=== PATIENT | female | born 1940 | race Caucasian/White ===

== ENCOUNTER 2020-02-15 11:13 | Emergency (ER) | payer MEDICARE, MEDICAID, SELFPAY ==
--- NOTE | 2020-02-15 11:15 | DI.CT_ITS ---
EXAM: CT HEAD CERV SPINE FACIAL WO CLINICAL HISTORY: s/p fall, R forehead abrasion TECHNIQUE: COMPARISON: No exams were available for comparison FINDINGS: CT examination head was performed without contrast administration. Note is made right pre frontal so ft tissue hematoma. No calvarial fracture. Moderate cerebral atrophy without evidence of acute intr acranial hemorrhage, mass effect or midline shift. The orbital and temporal bone structures appear i ntact. Paranasal sinuses and mastoid air cells well aerated. Additional scanning of facial region shows no facial fracture. No orbital fracture. Orbital content s appear intact. No mandibular fracture. Scanning of the cervical spine shows severe hypertrophic degenerative changes with very prominent ost eophytes involving vertebral endplates anteriorly at the midcervical level. No evidence of acute fra cture or dislocation. Tracheolaryngeal structures appear intact. IMPRESSION: No evidence of acute injury of the head, facial region, or cervical spine. RADIATION DOSE DELIVERED: 1,516.84mGy.cm Total DLP
[2020-02-15 11:18] VITALS: BP 111/39; PULSE 85; TEMP 35.9; O2SAT 98
--- NOTE | 2020-02-15 11:19 | ED.GENADUL_ITS ---
Discharge Plan Disposition Patient Disposition: HOME Condition: Stable Discharge Details Chief Complaint: Trauma Clinical Impression: Fracture, ribs, Forehead abrasion, Head injury, acute, without loss of consciousness Primary Care Provider: Joanna Liz ED Provider: Latonya Nicole Home Meds and New Rx's Prescriptions: Continued trazodone 50 mg Tablet 50 mg PO BID RF: 0 trazodone 50 mg Tablet 50 mg PO QHS PRNRF: 0 lovastatin 40 mg Tablet 40 mg PO DAILY RF: 0 melatonin 3 mg Tablet 3 mg PO DAILY RF: 0 levothyroxine 50 mcg Tablet 50 mcg PO DAILY RF: 0 ferrous sulfate 325 mg (65 mg iron) Tablet 325 mg PO DAILY RF: 0 Ensure Liquid 1 RF: 0 Magnesium (oxide/AA chelate) 300 mg Capsule 300 cap PO DAILY RF: 0 rivastigmine 4.6 mg/24 hr Patch 24 Hour 4.6 mg TRANSDERMAL DAILY RF: 0 omeprazole 20 mg Tablet,Delayed Release (Dr/Ec) 20 mg PO DAILY RF: 0 calcium carb and citrat-mag ox 200 mg calcium- 50 mg Tablet 1 tab PO BID RF: 0 Discharge Instructions Instructions: Rib Fracture (ED), Head Injury (ED), Abrasion (ED) Additional Instructions: Alternate tylenol and motrin as needed and directed for pain. Apply topical antibiotic ointment to the forehead abrasion 1-2 times daily over the next few days. Use the incentive spirometer as directed to prevent the development of pneumonia. Follow-up with your primary care doctor in 1 week. Return to the emergency department with any worsening or new concerning symptoms. Discharge Data Discharge Physician: Latonya Nicole Medical Decision Making 79-year-old female with a history of developmental delay presents from care home for mechanical fall off of couch and head injury. No report of LOC or vomiting. No report of any other injury. She ambulates with a walker at baseline. Vitals within normal limits. Call Out Clerk at bedside who states that patient is at her neurologic baseline. Patient has an abrasion to her right forehead but no other evidence of injury. Lungs clear. Abdomen soft nontender. No focal deficits. No orthopedic deformity. Will refer for CT head/facial bone/cervical spine in addition to chest x-ray and pelvis x-ray as she is unable to provide history. CT imaging reviewed and negative. Pelvis x-ray negative. Chest x-ray notes minimally displaced left third and fourth rib fractures. Patient reassessed and no acute change. Will send with incentive spirometer and advised pain control. Advised to follow up with the primary care doctor for re-evaluation. Usual and c ustomary return precautions given prior to discharge. Medical Records Medical records reviewed: Yes I reviewed the patient's medical records. Imaging Data Radiologic Study: Radiologist's impression: CT Head Without Contrast Exam date and time: 02/15/2020 11:22 AM Age: 79 years old Clinical indication: Other: S/P fall. RT forehead abrasion TECHNIQUE: Imaging protocol: Computed tomography of the head without contrast. COMPARISON: No relevant prior studies available. FINDINGS: Brain: Central and cortical brain atrophy evident, appropriate for patient age. There is nonspecific periventricular low attenuation, likely microangiopathic disease. No acute intracranial hemorrhage. Ventricles: Normal. No ventriculomegaly. Bones/joints: See Soft tissues finding. Sinuses: Visualized sinuses are unremarkable. No fluid levels. Mastoid air cells: Visualized mastoid air cells are well aerated. Soft tissues: Soft tissue swelling over the right frontal bone. No depressed calvarial fracture. IMPRESSION: 1. No acute intracranial abnormality. 2. Soft tissue swelling over the right frontal bone. No depressed calvarial fracture. CT Maxillofacial Without Contrast Exam date and time: 02/15/2020 11:22 AM Age: 79 years old Clinical indication: Other: S/P fall. RT forehead abrasion TECHNIQUE: Imaging protocol: Computed tomography images of the face without contrast. COMPARISON: No relevant prior studies available. FINDINGS: Orbits: Orbits are normal. Globes are unremarkable. Bones/joints: No acute fracture. Sinuses: Normal. No air-fluid levels. Soft tissues: Unremarkable. IMPRESSION: No acute findings. CT Cervical Spine Without Contrast Exam date and time: 02/15/2020 11:22 AM Age: 79 years old Clinical indication: Other: S/P fall. RT forehead abrasion TECHNIQUE: Imaging protocol: Computed tomography images of the cervical spine without contrast. COMPARISON: No relevant prior studies available. FINDINGS: Vertebrae: No acute fracture. Prominent anterior osteophytes, to the right of midline. Discs/Spinal canal/Neural foramina: Mild disc space narrowing at C5-C6. Multilevel facet arthropathy. Soft tissues: Unremarkable. Lungs: Lung apices are normal. IMPRESSION: No acute fracture. XR Pelvis Exam date and time: 02/15/2020 12:07 PM Age: 79 years old Clinical indication: Other: S/P fall off couch, R/O acute FX; Patient HX: Recent hip replacement TECHNIQUE: Imaging protocol: XR pelvis. Views: 1 or 2 view. COMPARISON: No relevant prior studies available. FINDINGS: Bones/joints: Left femoral prosthesis There is no evidence of acute fracture.There is no evidence of malalignment or dislocation. Degenerative changes in the lumbar spine Soft tissues: Unremarkable. IMPRESSION: There is no evidence of acute fracture.There is no evidence of malalignment or dislocation. XR Chest, 2 Views Exam date and time: 02/15/2020 12:04 PM Age: 79 years old Clinical indication: Other: Fall off couch, R/O acute injury TECHNIQUE: Imaging protocol: XR of the chest Views: 2 views. COMPARISON: No relevant prior studies available. FINDINGS: Lungs: Unremarkable. No consolidation. Pleural space: Unremarkable. No pleural effusion. No pneumothorax. Heart/Mediastinum: Unremarkable. No cardiomegaly. Bones/joints: Minimally displaced fractures of the left 3rd and 4th ribs. Degenerative changes in the glenohumeral joints IMPRESSION: Minimally displaced fractures of the left 3rd and 4th ribs. HPI General Date/Time Provider Initiated Documentation: 02/15/20 11:19 . Related Data Home Medications Medication Instructions Recorded Confirmed Ensure 1 02/15/20 Magnesium (oxide/AA chelate) 300 cap PO DAILY 02/15/20 02/15/20 calcium carb and citrat-mag ox 1 tab PO BID 02/15/20 02/15/20 ferrous sulfate 325 mg PO DAILY 02/15/20 02/15/20 levothyroxine 50 mcg PO DAILY 02/15/20 02/15/20 lovastatin 40 mg PO DAILY 02/15/20 02/15/20 melatonin 3 mg PO DAILY 02/15/20 02/15/20 omeprazole 20 mg PO DAILY 02/15/20 02/15/20 rivastigmine 4.6 mg TRANSDERMAL DAILY 02/15/20 02/15/20 trazodone 50 mg PO BID 02/15/20 02/15/20 trazodone 50 mg PO QHS PRN 02/15/20 02/15/20 Allergies Allergy/AdvReac Type Severity Reaction Status Date / Time No Known Allergies Allergy Unverified 02/15/20 11:25 [facility] Social History Smoking/Tobacco Use Status: Never Alcohol Intake: never Drug use: Never Substance use type: does not use Additional Social history: Patient has dementia. She lives in an assisted living facility in [place]
--- NOTE | 2020-02-15 12:00 | DI.RAD_ITS ---
EXAM: XR PELVIS AP CLINICAL HISTORY: s/p fall off couch, r/o acute fx TECHNIQUE: COMPARISON: No exams were available for comparison FINDINGS: Single AP view of the pelvis was obtained. Apparent bipolar left hip prosthesis in position which ap pears well seated. No gross fracture seen on this single view, please note that single projection is not adequate to exclude pelvic fracture. IMPRESSION: RADIATION DOSE DELIVERED: Total DLP
--- NOTE | 2020-02-15 12:00 | DI.RAD_ITS ---
EXAM: XR CHEST 2V PA LATERAL CLINICAL HISTORY: fall off couch, r/o acute injury TECHNIQUE: COMPARISON: No exams were available for comparison FINDINGS: There is question of deformity of left 3rd and 4th ribs laterally, acute or chronic injury. Lungs ar e clear, no pleural effusion or pneumothorax. Cardiac size within normal limits. IMPRESSION: Possible left 3rd and 4th rib fractures, of uncertain age. No other significant findings. RADIATION DOSE DELIVERED: Total DLP
--- NOTE | 2020-02-15 12:28 | DI.VRAD_ITS ---
PROCEDURE INFORMATION: Exam: XR Chest, 2 Views Exam date and time: 02/15/2020 12:04 PM Age: 79 years old Clinical indication: Other: Fall off couch, R/O acute injury TECHNIQUE: Imaging protocol: XR of the chest Views: 2 views. COMPARISON: No relevant prior studies available. FINDINGS: Lungs: Unremarkable. No consolidation. Pleural space: Unremarkable. No pleural effusion. No pneumothorax. Heart/Mediastinum: Unremarkable. No cardiomegaly. Bones/joints: Minimally displaced fractures of the left 3rd and 4th ribs. Degenerative changes in the glenohumeral joints IMPRESSION: Minimally displaced fractures of the left 3rd and 4th ribs. Dictated and Authenticated by: Anjana Jacob MD. Ordering:CONCEPCION Hanks MD
--- NOTE | 2020-02-15 12:29 | DI.VRAD_ITS ---
PROCEDURE INFORMATION: Exam: XR Pelvis Exam date and time: 02/15/2020 12:07 PM Age: 79 years old Clinical indication: Other: S/P fall off couch, R/O acute FX; Patient HX: Recent hip replacement TECHNIQUE: Imaging protocol: XR pelvis. Views: 1 or 2 view. COMPARISON: No relevant prior studies available. FINDINGS: Bones/joints: Left femoral prosthesis There is no evidence of acute fracture.There is no evidence of malalignment or dislocation. Degenerative changes in the lumbar spine Soft tissues: Unremarkable. IMPRESSION: There is no evidence of acute fracture.There is no evidence of malalignment or dislocation. Dictated and Authenticated by: Anjana Jacob MD. Ordering:CONCEPCION Hanks MD
--- NOTE | 2020-02-15 12:30 | DI.VRAD_ITS ---
PROCEDURE INFORMATION: Exam: CT Head Without Contrast Exam date and time: 02/15/2020 11:22 AM Age: 79 years old Clinical indication: Other: S/P fall. RT forehead abrasion TECHNIQUE: Imaging protocol: Computed tomography of the head without contrast. COMPARISON: No relevant prior studies available. FINDINGS: Brain: Central and cortical brain atrophy evident, appropriate for patient age. There is nonspecific periventricular low attenuation, likely microangiopathic disease. No acute intracranial hemorrhage. Ventricles: Normal. No ventriculomegaly. Bones/joints: See Soft tissues finding. Sinuses: Visualized sinuses are unremarkable. No fluid levels. Mastoid air cells: Visualized mastoid air cells are well aerated. Soft tissues: Soft tissue swelling over the right frontal bone. No depressed calvarial fracture. IMPRESSION: 1. No acute intracranial abnormality. 2. Soft tissue swelling over the right frontal bone. No depressed calvarial fracture. PROCEDURE INFORMATION: Exam: CT Maxillofacial Without Contrast Exam date and time: 02/15/2020 11:22 AM Age: 79 years old Clinical indication: Other: S/P fall. RT forehead abrasion TECHNIQUE: Imaging protocol: Computed tomography images of the face without contrast. COMPARISON: No relevant prior studies available. FINDINGS: Orbits: Orbits are normal. Globes are unremarkable. Bones/joints: No acute fracture. Sinuses: Normal. No air-fluid levels. Soft tissues: Unremarkable. IMPRESSION: No acute findings. PROCEDURE INFORMATION: Exam: CT Cervical Spine Without Contrast Exam date and time: 02/15/2020 11:22 AM Age: 79 years old Clinical indication: Other: S/P fall. RT forehead abrasion TECHNIQUE: Imaging protocol: Computed tomography images of the cervical spine without contrast. COMPARISON: No relevant prior studies available. FINDINGS: Vertebrae: No acute fracture. Prominent anterior osteophytes, to the right of midline. Discs/Spinal canal/Neural foramina: Mild disc space narrowing at C5-C6. Multilevel facet arthropathy. Soft tissues: Unremarkable. Lungs: Lung apices are normal. IMPRESSION: No acute fracture. Dictated and Authenticated by: Kelsey Martinez MD. Ordering:CONCEPCION Hanks MD
--- NOTE | 2020-02-15 14:53 | NUR.NOTE ---
Nursing Note: Called Hafsa Clark, [place] State Public Guardian and notified her that the patient has rib fractures, whether or not they were new or old. Vandana Clark [phone]
== END 2020-02-15 13:15 | disposition home or self-care (01) ==
PROVIDERS: Emergency Provider Physician Assistant; PCP Family Medicine
DX: S09.90XA Unspecified injury of head, initial encounter (principal); S00.81XA Abrasion of other part of head, initial encounter; S22.42XA Multiple fractures of ribs, left side, initial encounter for closed fracture; W08.XXXA Fall from other furniture, initial encounter
CPT/HCPCS: 99284; 70450; 70486; 71046; 72125; 72170; 99281

== ENCOUNTER 2020-04-20 08:40 | Outpatient (REF) | payer MEDICARE, MEDICAID, SELFPAY ==
[2020-04-20 21:06] LABS: HGB 11.8 g/dL (11.2-15.7); MCH 29.9 pg (27.0-33.0); MCHC 32.8 % (32.0-36.0); MCV 91.1 fL (80-95); MPV 10.9 fL (8.0-11.0); Platelet Count 295 10^3/uL (130-400); RBC 3.95 10^6/uL (3.93-5.22); RDW 13.5 % (11.7-14.6); RDW-SD 45.3 fL; WBC 5.41 10^3/uL (4.4-10.8)
[2020-04-20 21:24] LABS: ALT 22 U/L (14-59); AST 19 U/L (15-37); Albumin 3.5 g/dL (3.4-5.0); Alkaline Phosphatase 61 U/L (46-116); Anion Gap 5.9 mmol/L (3-11); BUN 19 mg/dL (7-18); CO2 30.1 mmol/L (21.0-32.0); CREATININE 1.05 mg/dL (0.55-1.02); Calcium 9.3 mg/dL (8.5-10.1); Calculated LDL 76 mg/dL (<100); Chloride 100 mmol/L (98-107); Cholesterol 164 mg/dL (<200); Estimated GFR 50.82 (mL/min/1.73m2); Glucose 88 mg/dL (74-106); HDL Cholesterol 56 mg/dL (40-60); Potassium 4.4 mmol/L (3.5-5.1); Sodium 136 mmol/L (136-145); Triglyceride 160 mg/dL (<150)
[2020-04-20 22:00] LABS: Bilirubin, Total 0.4 mg/dL (0.2-1.0)
== END 2020-04-20 09:00 ==
LOC: NCHCN 08:40
PROVIDERS: PCP Family Medicine; Visit Provider Physician Assistant
DX: E03.9 Hypothyroidism, unspecified (principal); F39 Unspecified mood [affective] disorder; D64.9 Anemia, unspecified; E78.5 Hyperlipidemia, unspecified
CPT/HCPCS: 80053; 80061; 85027; 84443

== ENCOUNTER 2020-06-22 17:02 | Outpatient (REF) | payer MEDICARE, SELFPAY ==
[2020-06-22 20:45] LABS: Abs Immature Grans 0.01 10^3/uL (0.0-0.06); Absolute Basophil Count 0.06 10^3/uL (0.0-0.2); Absolute Eosinophil Count 0.12 10^3/uL (0.0-0.7); Absolute Lymphocyte Count 2.18 10^3/uL (1.2-3.4); Absolute Monocyte Count 0.59 10^3/uL (0.1-0.8); Absolute Neutrophil Count 3.55 10^3/uL (1.2-6.7); Basophils % 0.9; Eosinophils % 1.8; HCT 35.7 % (36.0-46.0); Immature Grans % 0.2; Lymphocytes % 33.5; MCHC 33.6 % (32.0-36.0); MCV 92.2 fL (80-95); MPV 10.6 fL (8.0-11.0); Monocytes % 9.1; Neutrophils % 54.5; Nucleated RBC 0 %; Platelet Count 283 10^3/uL (130-400); RBC 3.87 10^6/uL (3.93-5.22); RDW 13.1 % (11.7-14.6); RDW-SD 44.1 fL; WBC 6.51 10^3/uL (4.4-10.8)
[2020-06-22 20:59] LABS: ALT 27 U/L (14-59); AST 22 U/L (15-37); Albumin 3.4 g/dL (3.4-5.0); Alkaline Phosphatase 67 U/L (46-116); Anion Gap 6.8 mmol/L (3-11); BUN 25 mg/dL (7-18); Bilirubin, Total 0.2 mg/dL (0.2-1.0); CO2 26.2 mmol/L (21.0-32.0); CREATININE 1.13 mg/dL (0.55-1.02); Calcium 8.7 mg/dL (8.5-10.1); Chloride 100 mmol/L (98-107); Estimated GFR 46.69 (mL/min/1.73m2); Glucose 88 mg/dL (74-106); Potassium 5.1 mmol/L (3.5-5.1); Sodium 133 mmol/L (136-145); TSH (W/Ref FT4) 0.93 uIU/mL (0.36-3.74); Total Protein 6.7 g/dL (6.4-8.2)
== END 2020-06-22 17:22 ==
LOC: NCHCN 17:02
PROVIDERS: PCP Family Medicine
DX: R55 Syncope and collapse (principal)
CPT/HCPCS: 80053; 84443; 85025

== ENCOUNTER 2020-07-31 15:30 | Outpatient (REF) | payer MEDICARE, SELFPAY ==
[2020-07-31 17:02] LABS: C Diff PCR Negative (Negative)
[2020-08-03 14:45] LABS: Campylobacter PCR Negative (Negative); Salmonella PCR Negative (Negative); Shiga Toxin PCR Negative (Negative); Shigella/Enteroinvasive Ecoli Negative (Negative)
== END 2020-07-31 15:31 | disposition home or self-care (01) ==
LOC: NCHCN 15:30
PROVIDERS: PCP Family Medicine; Visit Provider Family Medicine
DX: R19.7 Diarrhea, unspecified (principal)
CPT/HCPCS: 87493; 87505; 83630; 87177

== ENCOUNTER 2020-08-20 16:01 | Outpatient (REF) | payer MEDICARE, MEDICAID, SELFPAY ==
[2020-08-20 20:12] LABS: HCT 32.6 % (36.0-46.0); HGB 10.8 g/dL (11.2-15.7); MCH 29.8 pg (27.0-33.0); MCHC 33.1 % (32.0-36.0); MCV 90.1 fL (80-95); MPV 10.2 fL (8.0-11.0); Platelet Count 241 10^3/uL (130-400); RBC 3.62 10^6/uL (3.93-5.22); RDW 12.5 % (11.7-14.6); RDW-SD 41.3 fL; WBC 6.69 10^3/uL (4.4-10.8)
[2020-08-20 20:35] LABS: ALT 22 U/L (14-59); AST 22 U/L (15-37); Alkaline Phosphatase 61 U/L (46-116); BUN 9 mg/dL (7-18); Bilirubin, Total 0.2 mg/dL (0.2-1.0); CREATININE 0.9 mg/dL (0.55-1.02); Calcium 8.2 mg/dL (8.5-10.1); Chloride 98 mmol/L (98-107); Glucose 107 mg/dL (74-106); Potassium 3.7 mmol/L (3.5-5.1); Sodium 131 mmol/L (136-145)
== END 2020-08-20 16:02 | disposition home or self-care (01) ==
LOC: NCHCN 16:01
PROVIDERS: PCP Family Medicine; Visit Provider Family Medicine
DX: R19.7 Diarrhea, unspecified (principal)
CPT/HCPCS: 80053; 85027

== ENCOUNTER 2020-08-26 15:53 | Outpatient (REF) | payer MEDICARE, MEDICAID, SELFPAY ==
[2020-08-26 14:57] LABS: C Diff PCR Negative (Negative)
== END 2020-08-26 15:54 | disposition home or self-care (01) ==
LOC: NCHCN 15:53
PROVIDERS: PCP Family Medicine; Visit Provider Internal Medicine
DX: R19.7 Diarrhea, unspecified (principal)
CPT/HCPCS: 87329; 87493; 82272; 83630

== ENCOUNTER 2020-08-26 19:00 | Emergency (ER) | payer MEDICARE, MEDICAID, SELFPAY ==
[2020-08-26 18:55] VITALS: PULSE 81; RESP 18; TEMP 36.6; O2SAT 94
--- NOTE | 2020-08-26 19:16 | ED.GENADUL_ITS ---
Discharge Plan Disposition Patient Disposition: HOME Condition: Stable Discharge Details Clinical Impression: Vomiting and diarrhea, Hypomagnesemia, Hypokalemia Primary Care Provider: Joanna Liz ED Provider: Dyan Oneil Home Meds and New Rx's Prescriptions: New ondansetron 4 mg tablet,disintegrating 4 mg PO Q6H PRN (Reason: nausea and vomiting) Qty: 10 RF: 0 Continued loperamide [Imodium A-D] 2 mg capsule 2 mg PO BID PRNRF: 0 sertraline 50 mg tablet 50 mg PO DAILY RF: 0 ibuprofen 400 mg tablet 400 mg PO Q6H PRNRF: 0 ondansetron HCl 4 mg tablet 4 mg PO Q6H PRNRF: 0 hydrocortisone [Ala-Luis] 1 % cream 1 applic topical BID PRNRF: 0 magnesium oxide 400 mg (241.3 mg magnesium) tablet 400 mg PO DAILY RF: 0 rivastigmine [Exelon Patch] 4.6 mg/24 hr patch 24 hour 1 patch transdermal DAILY RF: 0 acetaminophen [Tylenol] 325 mg tablet 650 mg PO ONCE PRNRF: 0 loratadine 10 mg tablet 10 mg PO DAILY PRNRF: 0 calcium carbonate [Calcium 600] 600 mg calcium (1,500 mg) tablet 600 mg PO BID RF: 0 trazodone 50 mg Tablet 50 mg PO BID RF: 0 lovastatin 40 mg Tablet 40 mg PO DAILY RF: 0 melatonin 3 mg Tablet 3 mg PO DAILY RF: 0 levothyroxine 50 mcg Tablet 50 mcg PO DAILY RF: 0 ferrous sulfate 325 mg (65 mg iron) Tablet 325 mg PO DAILY RF: 0 Ensure Liquid 1 RF: 0 Magnesium (oxide/AA chelate) 300 mg Capsule 300 cap PO DAILY RF: 0 rivastigmine 4.6 mg/24 hr Patch 24 Hour 4.6 mg TRANSDERMAL DAILY RF: 0 omeprazole 20 mg Tablet,Delayed Release (Dr/Ec) 20 mg PO DAILY RF: 0 Discharge Instructions Instructions: Ondansetron (By mouth), Hypokalemia (ED), Acute Diarrhea (ED), Hypomagnesemia (ED) Additional Instructions: Please encourage frequent small sips of fluids. Please try to keep Joanna from drinking too quickly as this may cause increased nausea or vomiting. You have done an excellent job keeping her hydrated, please continue to do so with frequent fluid offerings. Potassium and magnesium are both low today, these will replenish orally. Please encourage foods rich in these substances, attached is the formation on how to increase dietary intake of potassium and magnesium. Please follow-up with primary care in the next week for reevaluation. If she develops fever/chills, inability stay hydrated, abdominal pain or other new/worsening symptoms please seek care urgently once again. You may use the Zofran as prescribed to help with any recurrence of her nausea or vomiting. Referrals: Joanna Liz [Primary Care Provider] - Discharge Data Discharge Date/Time-TO BE ENTERED AT DEPARTURE: 08/26/20 22:45 Medical Decision Making Patient is a pleasant 79-year-old female with past medical history pertinent for anemia, anxiety, cognitive developmental delay, GERD, diverticulosis, hyperlipidemia, hypothyroidism, impulse control disorder, incontinence, loose stools, mood disorder, vascular dementia. She is brought in by home care provider with concern for 6 weeks of diarrhea. Culture provided reports 6-10 bowel movements that are largely liquidy per day. No bright red blood or melena noted. Patient is not endorsing any discomfort. They state that she began having some nausea and vomiting yesterday. 2 episodes of vomiting yesterday and 2 today. No diminished appetite. States that she just drinks quite a lot and drinks very quickly. He has been giving her Gatorade to keep her replenished. No fevers or chills. No previous surgical history. Patient has been seen by her primary care doctor. Evaluated the patient yesterday and began her on new antidiarrheal medication. This was to start today but not been given as of yet secondary to the GI upset. On exam, patient appears nontoxic. She is repetitively asking to leave. Her abdominal exam is benign with no pain elicited. No evidence to suggest a surgical abdomen. No CVA tenderness. Mucous membranes appear moist. Given the length of time is been going on, I do feel that laboratory evaluation would be appropriate, in particular to evaluate for potential dehydration or electrolyte imbalance. Patient receiving IV fluids. She was given 4 mg of Zofran. Is now tolerating p .o. fluids. No vomiting here thus far. Labs reviewed. No leukocytosis. Stable H&H. Potassium is low at 3.1 and magnesium of 1.4. Will replenish both of these orally. No other acute abnormalities are noted. Trace protein in her urine. Patient continues to be resting comfortably. She repetitively asking to leave. She is quite pleasant and this does appear to be more her norm to be very repetitive in her questioning. I did speak with the patient legal guardian, Vandana, and slowly had findings of exam and work-up completed here today. I did not see any evidence to suggest a surgical abdomen and patient has reassuring labs, plan to hold off on any imaging. I advised that hopefully been Zofran allow her to be able to take the medication prescribed by her primary care provider. I encourage close follow-up with primary care and continuation of the medications. We did discuss increasing potassium magnesium in her diet. Return precautions were discussed. All of her questions and concerns were addressed and she is agreement this plan. HPI General Mode of arrival: EMS . Date/Time Provider Initiated Documentation: 08/26/20 19:02 . Limitations to Documentation: physical limitation (cognitive delay, vascular dementia) . Information obtained by: patient and family (assisted living home director, Adriana) . History of Present Illness 79 year old F presents to the emergency department with the chief complaint of diarrhea and vomiting, described as moderate (no pain, 6- 10BM/day, 2 episodes of vomiting today), Quality is described as other (Patient is not currently endorsing pain), and is localized to the abdomen. Patient started experiencing this week(s) (6) and it has been constant. No relieving factors improve symptom(s), No exacerbating factors reported . Patient notes no other symptoms.. Patient did receive the following treatments prior to arrival, none Related Data Home Medications Medication Instructions Recorded Confirmed Ensure 1 02/15/20 Magnesium (oxide/AA chelate) 300 cap PO DAILY 02/15/20 08/26/20 ferrous sulfate 325 mg PO DAILY 02/15/20 08/26/20 levothyroxine 50 mcg PO DAILY 02/15/20 08/26/20 lovastatin 40 mg PO DAILY 02/15/20 08/26/20 melatonin 3 mg PO DAILY 02/15/20 08/26/20 omeprazole 20 mg PO DAILY 02/15/20 08/26/20 rivastigmine 4.6 mg TRANSDERMAL DAILY 02/15/20 02/15/20 trazodone 50 mg PO BID 02/15/20 02/15/20 acetaminophen 325 mg tablet 650 mg PO ONCE PRN tab 08/17/20 08/26/20 calcium carbonate 600 mg calcium 600 mg PO BID 08/17/20 08/26/20 (1,500 mg) tablet hydrocortisone 1 % topical cream 1 applic TOPICAL BID PRN 08/17/20 08/26/20 ibuprofen 400 mg tablet 400 mg PO Q6H PRN 08/17/20 08/26/20 loperamide 2 mg capsule 2 mg PO BID PRN cap 08/17/20 08/26/20 loratadine 10 mg tablet 10 mg PO DAILY PRN 08/17/20 08/26/20 magnesium oxide 400 mg (241.3 mg 400 mg PO DAILY 08/17/20 magnesium) tablet ondansetron HCl 4 mg tablet 4 mg PO Q6H PRN 08/17/20 08/26/20 rivastigmine 4.6 mg/24 hour 1 patch TRANSDERMAL DAILY 08/17/20 transdermal patch sertraline 50 mg tablet 50 mg PO DAILY 08/17/20 08/26/20 ondansetron 4 mg PO Q6H PRN #10 tab 08/26/20 Previous Rx's Medication Instructions Recorded ondansetron 4 mg PO Q6H PRN #10 tab 08/26/20 Allergies Allergy/AdvReac Type Severity Reaction Status Date / Time No Known Allergies Allergy Unverified 08/26/20 19:02 General Stated Complaint: Nausea/Vomit/Diar TAD: 3 Review of Systems Unobtainable due to mental status [facility] Medical History Acute alteration in mental status Anemia Anxiety Cataracts, bilateral Cognitive developmental delay Diverticulosis of colon GERD (gastroesophageal reflux disease) Hyperlipidemia Hypothyroidism Impulse control disorder Incontinence Loose stools Mood disorder Osteopenia Syncope Vascular dementia Well adult exam Surgical History History of left hip replacement Social History Smoking/Tobacco Use Status: Never Smoking risk assessment performed?: Yes Alcohol Intake: never Drug use: Never Substance use type: does not use Do you feel safe at home: Yes Additional Social history: Patient has dementia. She lives in an assisted living facility in [place] Exam Const General: cooperative, healthy appearing, comfortable, no acute distress and well developed Nutritional Appearance: average body habitus and well nourished Orientation: alert, awake and confused (Patient has dementia and cognitive delay\, at baseline per home care provid) HENMT Head: normal to inspection Mouth: moist mucous membranes Resp Effort & Inspection: normal respiratory effort, able to speak in complete sentences and no respiratory distress Auscultation: clear to auscultation bilaterally, no rales, no rhonchi and no wheezes Cardio Rate: regular rate Rhythm: regular rhythm Heart Sounds: S1 normal and S2 normal GI Inspection: normal to inspection Palpation: soft, no hepatosplenomegaly, not firm, no guarding, no hernias, no pulsatile masses, not rigid and No ascites Percussion: normal to percussion Auscultation: normal bowel sounds Back/Spine/Pelvis Back: no CVA tenderness Skin General skin exam: no rashes or lesions noted Trauma: no lacerations or abrasions Neuro General: patient alert and patient awake Cognition: normal cognition Speech: speech normal Gait: normal gait Psych Appearance: grossly normal and well kempt Mental Status: mental status grossly normal Speech and Movement: speech and movement normal Course Vital Signs Vital signs: Vital Signs Temperature 36.6 C 08/26/20 18:55 Pulse 81 08/26/20 18:55 Respiratory Rate 18 08/26/20 18:55 Pulse Oximetry 94 08/26/20 18:55 Temperature 36.6 C 08/26/20 18:55 Pulse 81 08/26/20 18:55 Respiratory Rate 18 08/26/20 18:55 Respiratory Effort Non-Labored 08/26/20 19:00 Pulse Oximetry 94 08/26/20 18:55 Oxygen Delivery Method Room Air 08/26/20 18:55 Oxygen Flow Rate 0 08/26/20 18:55 Pain Level 0 08/26/20 18:55
[2020-08-26 19:19] VITALS: BP 142/98
[2020-08-26 19:41] LABS: Abs Immature Grans 0.02 10^3/uL (0.0-0.06); Absolute Basophil Count 0.05 10^3/uL (0.0-0.2); Absolute Eosinophil Count 0.03 10^3/uL (0.0-0.7); Absolute Lymphocyte Count 1.33 10^3/uL (1.2-3.4); Absolute Monocyte Count 0.71 10^3/uL (0.1-0.8); Absolute Neutrophil Count 5.95 10^3/uL (1.2-6.7); Basophils % 0.6; Eosinophils % 0.4; HCT 34.5 % (36.0-46.0); HGB 11.6 g/dL (11.2-15.7); Immature Grans % 0.2; Lymphocytes % 16.4; MCH 30.1 pg (27.0-33.0); MCHC 33.6 % (32.0-36.0); MCV 89.4 fL (80-95); MPV 9.5 fL (8.0-11.0); Monocytes % 8.8; Neutrophils % 73.6; Nucleated RBC 0 %; Platelet Count 281 10^3/uL (130-400); RBC 3.86 10^6/uL (3.93-5.22); RDW 12.7 % (11.7-14.6); RDW-SD 41.6 fL; WBC 8.09 10^3/uL (4.4-10.8)
[2020-08-26 19:47] LABS: Bilirubin Negative (Negative); Blood Negative (Negative); Clarity Clear (Clear); Glucose Negative (Negative); Ketones Negative (Negative); Leukocyte Esterase Negative (Negative); Nitrite Negative (Negative); Specific Gravity 1.015 (1.005-1.025); Urobilinogen 0.2 EU/dL (Up TO 0.2); pH 6.5 (5-8)
[2020-08-26 19:53] LABS: ALT 25 U/L (14-59); AST 27 U/L (15-37); Albumin 3.3 g/dL (3.4-5.0); Alkaline Phosphatase 70 U/L (46-116); Anion Gap 8.2 mmol/L (3-11); BUN 10 mg/dL (7-18); Bilirubin, Total 0.3 mg/dL (0.2-1.0); CO2 30.8 mmol/L (21.0-32.0); CREATININE 0.9 mg/dL (0.55-1.02); Calcium 8.8 mg/dL (8.5-10.1); Chloride 97 mmol/L (98-107); Glucose 104 mg/dL (74-106); Magnesium 1.4 mg/dL (1.8-2.4); Potassium 3.1 mmol/L (3.5-5.1); Sodium 136 mmol/L (136-145); Total Protein 6.9 g/dL (6.4-8.2)
[2020-08-26 20:19] LABS: Bacteria Negative HPF (Negative); C & S Indicated? No; Casts Negative LPF (Negative); Crystals Negative HPF (Negative); Epithelial Cells Moderate HPF (Negative); Mucus Negative (Negative); RBC 0-2 HPF (0-2); WBC 0-2 HPF (0-5)
[2020-08-26] MEDS: Ondansetron 4 MG/2 ML VIAL IVP (20:53)
[2020-08-26] MEDS: Potassium Chloride Liquid 20 MEQ PKT 40 MEQ PO (21:09)
[2020-08-26] MEDS: Magnesium Oxide 400 MG TAB 800 MG PO (21:10)
[2020-08-26] MEDS: traZODone 50 MG TAB PO (21:29)
[2020-08-26] MEDS: Melatonin 3 MG TAB PO (21:50)
== END 2020-08-26 22:45 | disposition home or self-care (01) ==
PROVIDERS: Emergency Provider Physician Assistant; PCP Family Medicine
DX: E87.6 Hypokalemia (principal); E83.42 Hypomagnesemia; R11.2 Nausea with vomiting, unspecified; R19.7 Diarrhea, unspecified
CPT/HCPCS: 36415; 80053; 96374; 99284; 81003; 81015; 83735; 85025; J2405

== ENCOUNTER 2020-08-28 14:27 | Observation (INO) | payer MEDICARE, MEDICAID, SELFPAY ==
[2020-08-28] VITALS (90 sets, daily range): BP systolic 121–202; BP diastolic 58–109; PULSE 68–102; RESP 15–28; TEMP 36.8–37.5; O2SAT 83–99
--- NOTE | 2020-08-28 14:37 | ED.GENADUL_ITS ---
Discharge Plan Disposition Patient Disposition: [facility] INPATIENT Condition: Improving Discharge Details Clinical Impression: Nausea & vomiting, Hypomagnesemia, Abdominal fluid collection, Elevated troponin Admit Date/Time: 08/28/20 23:49 Admit Provider: Anatoliy Yip Attending Provider: Anatoliy Yip Primary Care Provider: Joanna Liz ED Provider: Lewis Massey Discharge Data Discharge Date/Time-TO BE ENTERED AT DEPARTURE: 08/29/20 00:45 Medical Decision Making <CAM Alvarez - Last Filed: 09/02/20 22:51> Patient pleasant 79-year-old female whose past medical history is significant for anemia, anxiety, cognitive development delay, diverticulosis, GERD, hyperlipidemia, hypothyroidism, impulse control disorder, incontinence, loose stools, vascular dementia. Patient was seen by myself 2 days ago with similar complaint. Please see my initial note regarding her history and presentation at that time. Today however, her diarrhea, which has been persistent for 6 weeks, it has stopped. No bowel movement today. However, the patient has had vomiting.n secondary to the patient's baseline cognitive functioning, she is unable to provide history. However, home care provider is with her today she has diminished p.o. intake. She reports that while her appetite has been unchanged when I saw her 2 days ago, she has had no p.o. intake thus far today despite being offered fluids frequently. She reports that whenever she has had anything n.p.o., she has had vomiting. Denies any fevers but has noted her to be diaphoretic. On exam, patient appears anxious. She is repeating herself frequently which is unchanged from when I saw her 2 days ago. Continues to request to leave. She denies any pain. No pain elicited with abdominal exam or CVA percussion. No focal findings noted at this time. Plan to recheck labs. With this decline, I do feel that imaging is appropriate at this time and will obtain a CT scan. Labs reviewed. WBC up to 15.9 from 8. K+ is improved. Magnesium is still low at 1.5. Creatinine elevated at 1.1. Troponin elevated at 0.07. Patient denies SOB Spoke with patient's guardian, Mayra [phone]. FINDINGS: Limitations: Degraded image quality with the patient's arms overlying the chest. Motion artifact degrades image quality. Pleural spaces: Bilateral pleural effusions. Heart: Cardiomegaly. Mediastinal space: Hiatal hernia. Liver: Normal. No mass. Gallbladder and bile ducts: Normal. No calcified stones. No ductal dilation. Pancreas: Normal. No ductal dilation. Spleen: Normal. No splenomegaly. Adrenal glands: Normal. No mass. Kidneys and ureters: Simple right renal cyst. Duplicated right ureter. Stomach and bowel: Unremarkable. No obstruction. No mucosal thickening. Appendix: No evidence of appendicitis. Intraperitoneal space: Unremarkable. No free air. No significant fluid collection. Vasculature: Coronary artery disease. Atherosclerotic disease. Lymph nodes: Unremarkable. No enlarged lymph nodes. Urinary bladder: Unremarkable as visualized. Reproductive: 5.6 x 4.6 cm loculated fluid collection posterior to the bladder and in the region inferior uterus and cervix and possibly extending into the vagina. The adnexa are unremarkable. Bones/joints: Multilevel degenerative scoliotic changes of the thoracic and lumbar spine. Total left hip arthroplasty. Osteoarthritic degenerative changes of the right hip. Soft tissues: Unremarkable. IMPRESSION: 1. Large loculated fluid collection in the region of the lower uterus and cervix and possibly extending into the vagina. 2. Bilateral pleural effusions. 3. Additional findings as discussed above. Updated patients guardian. Consulted with OB-WAX MACHINE OPERATOR. She and I discussed presentation and imaging. She advised that this fluid collection is likely from diverticular rupture and advised f/u with general surgery. Consulted with Dr. Galindo with general surgery. He reviewed the images and does not feel that this is associate with a diverticular rupture or other GI issue. He feels that this is uterine or any in nature. Question potential rupture. He does not feel that this is associated with bowel disease. He advised that IR drainage may be most appropriate for this patient Consulted with Dr. Valdes and ARIE the IR. She reviewed the images and will consult with his attending call me back. Spoke with IR again. They advised that the imaging did not look particularly inflamed. Advised that this could be a chronic status that the patient had for years. Advised that this also could be in the vaginal vault urine collection or potentially infection. They advised transvaginal ultrasound as well as a speculum exam versus a pelvic MRI with contrast. At this time iron drainage not be appropriate without further evaluation prior. I spoke with the patient guardian once again. Also, at her request, spoke with Anneliese steen at [phone]. She is a nurse at the facility with the patient resides. We discussed the concerns on CT scan. Again, unclear associated with the patient diarrhea and current decline. However, we discussed that further evaluation would be appropriate. Vandana would like to move forward with further imaging with transvaginal ultrasound as well as speculum exam. We did discuss that the patient will not be able to tolerate this without sedation. We discussed risk/benefit of procedural sedation. She does give verbal permission over the phone. I will speak with the radiology department as well as GARBAGE TRUCK DRIVER once again. Repeat troponin remains stable at 0.08. Repeat EKG remained stable patient is in sinus rhythm with a rate of 81. Patient is becoming more anxious once again. She did respond well to the Ativan. Will give another 0.05. premises technician is available. Spoke again with GARBAGE TRUCK DRIVER who will come in for the vaginal exam. Plan is to sedate the patient in the emergency department for both procedures. At the end of my shift, care transition to Dr. Massey with procedure pending. He will speak again with the guardian to relay the information on the procedure and again again permission to treat and permission to perform procedure. <Lewis Massey MD - Last Filed: 08/28/20 23:37> 2215??care signed out by CAM Oneil with plan for gynecologic exam and pelvic ultrasound to be performed under procedural sedation. I called and spoke with patient's guardian who consented to procedural sedation. Procedural sedation was performed by me, please see note. Gynecologic exam was performed by on-call rn first assistant, Dr. Almanzar, and official pelvic ultrasound was performed. Patient tolerated examination and diagnostics well. Patient reassessed post sedation and has returned to baseline mentation. Ultrasound was interpreted by radiology: IMPRESSION: No acute findings. The loculated fluid collection involving the lower uterine segment or cervix is not identified on the transvaginal ultrasound. There are no trans abdominal images included with the study which may not have transmitted. Of note, transabdominal ultrasound was performed with transvaginal and neither educational technologist nor rn first assistant could identify any collection. Call to [facility] to request follow-up consultation with interventional radiologist. Imaging was sent for review. Awaiting callback. 2300 --I spoke with [facility] transfer center who notes that interventional radiologist is not currently able to consult but will call back after completes procedure. Given unlikely intervention tonight, plan to hospitalize for observation and further diagnostic. I spoke with Dr. Yip, on-call hospitalist, who will evaluate the patient for admission. HPI <CAM Alvarez - Last Filed: 09/02/20 22:51> General Mode of arrival: wheelchair . Date/Time Provider Initiated Documentation: 08/28/20 14:37 . Limitations to Documentation: physical limitation (hx of dementia) . Information obtained by: patient, family (home care provider), RN notes reviewed and old records reviewed . History of Present Illness 79 year old F presents to the emergency department with the chief complaint of vomiting, diminished PO intake, described as moderate, Quality is described as other (patient denies any pain), and is localized to the abdomen. Patient started experiencing this week(s) and it has been constant. No relieving factors improve sympt om(s), No exacerbating factors reported . Patient notes no other symptoms.. Patient did receive the following treatments prior to arrival, other (zofran and loperamide) Related Data Home Medications Medication Instructions Recorded Confirmed Ensure 1 02/15/20 ferrous sulfate 325 mg PO DAILY 02/15/20 08/28/20 levothyroxine 50 mcg PO DAILY 02/15/20 08/28/20 melatonin 3 mg PO DAILY 02/15/20 08/28/20 trazodone 25 mg PO BID 02/15/20 08/28/20 calcium carbonate 600 mg calcium 600 mg PO BID 08/17/20 08/28/20 (1,500 mg) tablet ondansetron HCl 4 mg tablet 4 mg PO Q6H PRN 08/17/20 08/28/20 cholestyramine (with sugar) 1 packet PO BID 08/28/20 08/28/20 magnesium gluconate 27 mg PO DAILY #30 tab 08/29/20 potassium chloride 20 meq PO DAILY #30 tab 08/29/20 Previous Rx's Medication Instructions Recorded magnesium gluconate 27 mg PO DAILY #30 tab 08/29/20 potassium chloride 20 meq PO DAILY #30 tab 08/29/20 Allergies Allergy/AdvReac Type Severity Reaction Status Date / Time No Known Allergies Allergy Unverified 08/28/20 14:40 General TAD: 3 Review of Systems <CAM Alvarez - Last Filed: 09/02/20 22:51> Unobtainable due to mental condition PFSH <CAM Alvarez - Last Filed: 09/02/20 22:51> Medical History Acute alteration in mental status Anemia Anxiety Cataracts, bilateral Cognitive developmental delay Diverticulosis of colon GERD (gastroesophageal reflux disease) Hyperlipidemia Hypothyroidism Impulse control disorder Incontinence Loose stools Mood disorder Osteopenia Syncope Vascular dementia Well adult exam Surgical History History of left hip replacement Social History Smoking/Tobacco Use Status: Never Smoking risk assessment performed?: Yes Alcohol Intake: never Drug use: Never Substance use type: does not use Do you feel safe at home: Yes Additional Social history: Patient has dementia. She lives in an assisted living facility in [facility] <CAM Alvarez - Last Filed: 09/02/20 22:51> Const General: cooperative, healthy appearing, comfortable, no acute distress and well developed Nutritional Appearance: average body habitus and well nourished Orientation: alert, awake and confused (repetatively asking to go home, yelling) HENMT Head: normal to inspection Mouth: moist mucous membranes Resp Effort & Inspection: normal respiratory effort, able to speak in complete sentences and no respiratory distress Auscultation: clear to auscultation bilaterally, no rales, no rhonchi and no wheezes Cardio Rate: regular rate Rhythm: regular rhythm Heart Sounds: S1 normal and S2 normal GI Inspection: normal to inspection, no abdominal wall ecchymosis and non-distended Palpation: soft, no hepatosplenomegaly, no guarding, no hernias, no masses, no pulsatile masses, not rigid and nontender Percussion: normal to percussion Auscultation: hypoactive bowel sounds Back/Spine/Pelvis Back: no CVA tenderness Skin General skin exam: no rashes or lesions noted Trauma: no lacerations or abrasions Neuro General: patient alert and patient awake Cognition: normal cognition Speech: speech normal Gait: normal gait Psych Appearance: grossly normal and well kempt Mental Status: mental status grossly normal Speech and Movement: speech and movement normal Sign Out <CAM Alvarez Last Filed: 09/02/20 22:51> Sign Out Data: Sign Out Comment: Care transitioned to Dr. Massey with further imaging pending. Last updated by Dyan Oneil PA at 08/28/20 20:15
--- NOTE | 2020-08-28 14:45 | RT.EKG_ITS ---
APPROVED REPORT Exam: Resting ECG Patient Location: E HR:83 bpm ECG Measurements Heart Rate 83 AXIS FL 177 P 49 QRSd 71 QRS 51 QT 362 T 36 QTc 427 Conclusion Sinus rhythm...normal P axis, V-rate 60- 99 Ventricular premature complex...V complex w/ short R-R interval. No STEMI. PVCs. I have reviewed and interpreted ECG and agree with software generated interpretation.
[2020-08-28] MEDS: Normal Saline 1,000 ML 1000 ML IV (15:10)
[2020-08-28 15:14] LABS: Abs Immature Grans 0.07 10^3/uL (0.0-0.06); Absolute Eosinophil Count 0.02 10^3/uL (0.0-0.7); Absolute Monocyte Count 1.34 10^3/uL (0.1-0.8); Basophils % 0.4; Eosinophils % 0.1; HCT 36.1 % (36.0-46.0); HGB 12.2 g/dL (11.2-15.7); Immature Grans % 0.4; Lymphocytes % 12.6; MCH 30.1 pg (27.0-33.0); MCHC 33.8 % (32.0-36.0); MCV 89.1 fL (80-95); MPV 9.5 fL (8.0-11.0); Monocytes % 8.4; Neutrophils % 78.1; Nucleated RBC 0 %; Platelet Count 305 10^3/uL (130-400); RBC 4.05 10^6/uL (3.93-5.22); RDW 12.9 % (11.7-14.6); RDW-SD 42.7 fL; WBC 15.98 10^3/uL (4.4-10.8)
[2020-08-28 15:16] LABS: Absolute Basophil Count 0.06 10^3/uL (0.0-0.2); Absolute Lymphocyte Count 2.01 10^3/uL (1.2-3.4); Absolute Neutrophil Count 12.48 10^3/uL (1.2-6.7)
[2020-08-28 15:20] LABS: ALT 26 U/L (14-59); AST 31 U/L (15-37); Albumin 3.1 g/dL (3.4-5.0); Alkaline Phosphatase 62 U/L (46-116); Anion Gap 9.4 mmol/L (3-11); BUN 16 mg/dL (7-18); Bilirubin, Total 0.5 mg/dL (0.2-1.0); CO2 28.6 mmol/L (21.0-32.0); CREATININE 1.1 mg/dL (0.55-1.02); Chloride 97 mmol/L (98-107); Estimated GFR 48.16 (mL/min/1.73m2); Glucose 156 mg/dL (74-106); Lipase 78 U/L (73-393); Magnesium 1.5 mg/dL (1.8-2.4); Potassium 3.7 mmol/L (3.5-5.1); Sodium 135 mmol/L (136-145); Total Protein 7.1 g/dL (6.4-8.2)
[2020-08-28] MEDS: Ondansetron 4 MG/2 ML VIAL IVP (15:20)
[2020-08-28 15:22] LABS: Troponin I 0.07 ng/mL (<0.06)
[2020-08-28] MEDS: Omnipaque 350 MG/ML 50 ML BTL IV ×3 (15:34→15:36)
[2020-08-28] MEDS: Normal Saline - Diluent 50 ML VIAL IV (15:38)
[2020-08-28] MEDS: LORazepam 2 MG/ML VIAL 0.5 MG IVP ×2 (15:42→19:35)
[2020-08-28] MEDS: Normal Saline Flush 10 ML SYR IVP (15:43)
--- NOTE | 2020-08-28 16:09 | DI.CT_ITS ---
EXAM: CT ABDOMEN PELVIS W CLINICAL HISTORY: vomiting, no BM TECHNIQUE: Imaging Protocol: Axial computed tomography images with coronal and sagittal reformatted images were created and reviewed CONTRAST MATERIAL: Intravenous: Omnipaque 350 Contrast volume:70 mL Oral: No COMPARISON: No exams were available for comparison FINDINGS: The examination is limited due to patient motion artifact. ABDOMEN: Lung Bases: Small bilateral pleural effusions or pleural scarring. Cardiomegaly. Moderate hiatal he rnia. Liver: Diffuse decreased attenuation consistent with fatty infiltration. No measurable mass. Portal, Superior Mesenteric, and Splenic Veins: Unremarkable. Gallbladder and Biliary Tract: No radiodense calculus or dilation. Pancreas: Normal density, no abnormal calcifications or inflammatory process. Spleen: Normal. Adrenals: No masses seen. Kidneys: Normal size, contour and axis. No radiodense stones or obstructive uropathy. 0.7 cm hypodens e left left renal nodule likely reflecting a cyst. No further follow-up is recommended. Abdominal Aorta: Abdominal portion non-dilated. Atherosclerosis. Bowel: There are dilated loops of small bowel in the left abdomen with normal caliber small bowel loo ps in the right lower quadrant. Appendix is unremarkable. The colon is unremarkable with a few scatt ered diverticula in the sigmoid. No evidence of acute diverticulitis. Peritoneal Cavity: No ascites, collection or mesenteric inflammatory response. No free air. Lymph Nodes: Within normal limits. Bones: Within normal limits for the patient's age. Artifact from the patient's left total hip replac ement. There is a left convex lumbar scoliosis. Soft Tissues: Unremarkable. PELVIS: Bladder: Symmetric distention, no gross wall thickening. Reproductive Organs: There is a 5.6 x 4.6 fluid collection posterior to the urinary bladder in the re gion of the cervix possibly extending into the vagina. Lymph Nodes: Within normal limits. Bones: Within normal limits for the patient's age. IMPRESSION: 1. Mildly dilated loops of proximal small bowel. This may represent a early small bowel obstruction or ileus. Please correlate clinically. 2. Large fluid collection in the region of the lower uterus, cervix and possibly extending into the v agina. Pelvic ultrasound is recommended for further evaluation. 3. Bilateral pleural effusions. RADIATION DOSE DELIVERED: 907.47mGy.cm Total DLP DATA REPOSITORY: All CT scans at this facility are submitted to the National Radiology Data Registry (NRDR) Dose Index Registry (DIR) with the [employer] ([employer]). RADIATION OPTIMIZATION: All CT scans at this facility use at least one of these dose optimization te chniques: automated exposure control; mA and/or kV adjustment per patient size (includes targeted exa ms where dose is matched to clinical indication); or iterative reconstruction.
--- NOTE | 2020-08-28 17:00 | RT.EKG_ITS ---
APPROVED REPORT Exam: Resting ECG Patient Location: E HR:81 bpm ECG Measurements Heart Rate 81 AXIS IL 183 P 67 QRSd 68 QRS 65 QT 380 T 39 QTc 443 Conclusion Sinus rhythm...normal P axis, V-rate 60- 99
--- NOTE | 2020-08-28 17:19 | DI.VRAD_ITS ---
PROCEDURE INFORMATION: Exam: CT Abdomen And Pelvis With Contrast Exam date and time: 08/28/2020 3:56 PM Age: 79 years old Clinical indication: Patient HX: Vomiting, no bm TECHNIQUE: Imaging protocol: Computed tomography of the abdomen and pelvis with contrast. Radiation optimization: All CT scans at this facility use at least one of these dose optimization techniques: automated exposure control; mA and/or kV adjustment per patient size (includes targeted exams where dose is matched to clinical indication); or iterative reconstruction. Contrast material: OMNI 350; Contrast volume: 70 ml; Contrast route: INTRAVENOUS (IV); COMPARISON: CR XR PELVIS AP 15/02/2020 12:07 FINDINGS: Limitations: Degraded image quality with the patient's arms overlying the chest. Motion artifact degrades image quality. Pleural spaces: Bilateral pleural effusions. Heart: Cardiomegaly. Mediastinal space: Hiatal hernia. Liver: Normal. No mass. Gallbladder and bile ducts: Normal. No calcified stones. No ductal dilation. Pancreas: Normal. No ductal dilation. Spleen: Normal. No splenomegaly. Adrenal glands: Normal. No mass. Kidneys and ureters: Simple right renal cyst. Duplicated right ureter. Stomach and bowel: Unremarkable. No obstruction. No mucosal thickening. Appendix: No evidence of appendicitis. Intraperitoneal space: Unremarkable. No free air. No significant fluid collection. Vasculature: Coronary artery disease. Atherosclerotic disease. Lymph nodes: Unremarkable. No enlarged lymph nodes. Urinary bladder: Unremarkable as visualized. Reproductive: 5.6 x 4.6 cm loculated fluid collection posterior to the bladder and in the region inferior uterus and cervix and possibly extending into the vagina. The adnexa are unremarkable. Bones/joints: Multilevel degenerative scoliotic changes of the thoracic and lumbar spine. Total left hip arthroplasty. Osteoarthritic degenerative changes of the right hip. Soft tissues: Unremarkable. IMPRESSION: 1. Large loculated fluid collection in the region of the lower uterus and cervix and possibly extending into the vagina. 2. Bilateral pleural effusions. 3. Additional findings as discussed above. Dictated and Authenticated by: Geetha Huff MD. Ordering:DION Zaidi MD
[2020-08-28] MEDS: MAGNESIUM SULFATE 1 GM/100 ML BAG IVPB (17:26)
[2020-08-28 18:42] LABS: Troponin I 0.08 ng/mL (<0.06)
--- NOTE | 2020-08-28 20:15 | DI.US_ITS ---
EXAM: US PELVIS TRANSVAGINAL CLINICAL HISTORY: collection. TECHNIQUE: Transabdominal and transvaginal pelvic ultrasound was performed using standard protocol. COMPARISON: CT CT ABDOMEN PELVIS W from 08/28/2020 FINDINGS: UTERUS: Position: Retroverted Size: 3.6 long by 2.7 AP by 3.1 transverse cm Endometrium: 0.3 cm. Normal for patient's menstrual status. Myometrium: There is a 1.6 x 1.8 x 2.1 cm slightly hypoechoic mass in the fundus of the uterus likely reflecting a fibroid. Cervix: Unremarkable. OVARIES: Right: 1.6 x 1.5 x 1.0 cm Cyst or mass: None. Left: 1.7 x 1.6 x 1.1 cm Cyst or mass: None. DOPPLER: Color: Symmetric and uniform flow to both ovaries. No hyperemia. Duplex: Normal ovarian arterial waveforms visualized. CUL-DE-SAC: Free fluid: None. Other: The fluid collection seen on the CT examination from the same day is not visualized sonographi philippe. Transabdominal images were not obtained. IMPRESSION: 1. No acute abnormality. 2. The fluid collection seen on the CT examination was not identified on the transvaginal examination . There were no transabdominal images on this examination. 3. Unremarkable bilateral ovaries. DATA REPOSITORY:
[2020-08-28] MEDS: Ketamine 500 MG/10 ML VIAL 24 MG IVP (21:02)
[2020-08-28] MEDS: Propofol 200 MG/20 ML VIAL 20 MG IVP (21:10)
--- NOTE | 2020-08-28 21:30 | W.GYNCONSULT ---
Date of service: 08/28/20 Time of Service: 21:30 History of Present Illness History of Present Illness Chief Complaint: Loculated fluid collection seen on CT scan Narrative: 79 yo severely developmentally delayed female presents to the emergency department after many days of diarrhea and low po intake and nausea. She had an abdominal and pelvic CT SCAN found to have a concerning loculated fluid collection possibly collecting to the vagina. Reproductive: 5.6 x 4.6 cm loculated fluid collection posterior to the bladder and in the region inferior uterus and cervix and possibly extending into the vagina. The adnexa are unremarkable. Her mental and developmental status require sedation for a pelvic exam and TVUS. Pelvic Exam Under Conscious Sedation in the Emergency Department: External Genitalia: normal labia, normal skiene's glands, perineal body appears normal, no evidence of erythema, no lesions or masses, postmenopausal, good hygiene Urethra: normal appearing, no evidence of lesions or masses Vaginal Mucosa: normal postmenopausal rugae, no masses, no lesions, no abnormal discharge Cervix: normal, no lesions, Uterus: appropriate size, mobile, Adnexa: no lesions or masses palpated, mobile Rectum: normal external anatomy noted, no masses and no abnormalities noted Vaginitis swab collected GC and Chlamydia collected General wound culture swabs taken Consults Consult date: 08/28/20 Requesting physician: Lewis Massey [facility] Medical History Acute alteration in mental status Anemia Anxiety Cataracts, bilateral Cognitive developmental delay Diverticulosis of colon GERD (gastroesophageal reflux disease) Hyperlipidemia Hypothyroidism Impulse control disorder Incontinence Loose stools Mood disorder Osteopenia Syncope Vascular dementia Well adult exam Surgical History History of left hip replacement Social History Smoking/Tobacco Use Status: Never Smoking risk assessment performed?: Yes Alcohol Intake: never Drug use: Never Substance use type: does not use Do you feel safe at home: Yes Additional Social history: Patient has dementia. She lives in an assisted living facility in [place] Results Last Vital Signs Temp 99.5 F 08/28/20 18:10 Pulse 90 08/28/20 20:53 Resp 24 08/28/20 20:53 BP 175/89 H 08/28/20 20:53 Pulse Ox 95 08/28/20 20:53 Labs Result diagrams: 08/28/20 15:00 08/28/20 15:00 Labs: Laboratory Results - last 24 hr 08/28/20 08/28/20 08/28/20 15:00 15:00 18:13 WBC 15.98 H RBC 4.05 Hgb 12.2 Hct 36.1 MCV 89.1 MCH 30.1 MCHC 33.8 RDW 12.9 Plt Count 305 MPV 9.5 Immature Gran % 0.4 Neutrophils % 78.1 Lymphocytes % 12.6 Monocytes % 8.4 Eosinophils % 0.1 Basophils % 0.4 Nucleated RBC % 0 Absolute Neutrophils 12.48 H Absolute Lymphocytes 2.01 Absolute Monocytes 1.34 H Absolute Eosinophils 0.02 Absolute Basophils 0.06 Sodium 135 L Potassium 3.7 Chloride 97 L Carbon Dioxide 28.6 Anion Gap 9.4 BUN 16 D Creatinine 1.1 H Estimated GFR/1.73 m2 48.16 Glucose 156 H Calcium 9.0 Magnesium 1.5 L Total Bilirubin 0.5 AST 31 ALT 26 Alkaline Phosphatase 62 Troponin I 0.07 H 0.08 H* Total Protein 7.1 Albumin 3.1 L Lipase 78
--- NOTE | 2020-08-28 22:00 | RESPIRATORY ---
RT called into ED for sedation through ultrasound procedure, RT arrived at pt bedside at 20:37, ED attending was Dr. Bereket Massey. Equipment ready before sedation and procedure: ambu-bag with etCO2, bacterial/viral filter, and PEEP valve; suction with yankauer tip; nasal cannula with etCO2 monitoring; oral airway; nasopharyngeal airway; airway cart outside of room; SpO2 monitor on patient. Pre-sedation vital signs: HR 86, RR 20, SpO2 94% RA, etCO2 39. Nasal cannula placed on patient and pre-oxygenated before sedation given at 21:02. Vitals through procedure: HR 75-90, SpO2 90-99% on 2-10L, RR 13-22, etCO2 18-34. Pt was able to maintain secretions well throughout sedation with no suction needed. Jaw-thrust was used to keep adequate airway through procedure. Procedure end time: 21:19. Post sedation vitals: HR 90, RR 22, SpO2 94% RA, etCO2 38. Pt was awake and alert making purposeful motions and verbalizations when RT left bedside at 21:50. RT checked with nursing staff and ED attending Dr. Massey before leaving.
--- NOTE | 2020-08-28 22:10 | DI.VRAD_ITS ---
Addendum created by Geetha Huff MD on 08/28/2020 10:10:42 PM EST: Findings were discussed with VIRGINIA DOMINIQUE at 08/28/2020 10:04 PM EST. Initial report created on 08/28/2020 10:10:29 PM EST: PROCEDURE INFORMATION: Exam: US Pelvis Complete, Transabdominal and US Pelvis, Transvaginal Exam date and time: 08/28/2020 8:30 PM Age: 79 years old Clinical indication: Other: Abnormal CT today showing possible fluid collection; Patient HX: Fluid collection seen on CT; Additional info: Limited exam - exam performed under sedation due to patient condition. TECHNIQUE: Imaging protocol: Real-time transabdominal and transvaginal pelvic ultrasound (complete) with image documentation. Transvaginal imaging was used for better evaluation of the endometrium, adnexa, and/or cervix. COMPARISON: CT ABDOMEN PELVIS W 10/26/2020 15:45 FINDINGS: Uterus/cervix: The loculated fluid collection involving the lower uterine segment or cervix or vagina was not identified on the trans vaginal ultrasound. There are no trans abdominal images. The endometrium measures 0.3 cm. The uterus measures 3.6 x 2.7 x 3.1 cm. Right adnexa: The right ovary measures 1.6 x 1.5 x 1.0 cm. Left adnexa: The left ovary measures measures 1.7 x 1.6 x 1.1 cm. Intraperitoneal space: No intraperitoneal fluid. Urinary bladder: Normal. Other findings: Findings were discussed with VIRGINIA DOMINIQUE at 08/28/2020 10:04 PM EST. IMPRESSION: No acute findings. The loculated fluid collection involving the lower uterine segment or cervix is not identified on the transvaginal ultrasound. There are no trans abdominal images included with the study which may not have transmitted. Dictated and Authenticated by: Geetha Huff MD. Ordering:ABI Saucedo MD
--- NOTE | 2020-08-28 22:15 | NUR.NOTE ---
Nursing Note:Dr. Massey consulting with [facility], admission pending. Patient sleeping, wakes to verbal stimuli and answers simple, basic questions appropriately. See VS flow sheet.
--- NOTE | 2020-08-28 23:27 | HPE_ITS ---
Date of service: 08/28/20 Time of Service: 23:27 Assessment and Plan Assessment and plan (1) Vomiting and diarrhea: Status: Acute Assessment and plan: Chronic diarrhea with positive lactoferrin and othe rwise negative infectious w/u. As to CT findings U/S is in general to be considered more sensitive so this may be false positive CT, but could consider MRI. Would expand diarrhea work up to noninfectious causes, will obtain fecal calprotectin and would advise colonoscopy and will consult surgery for this. Will also trend white count. History of Present Illness History of Present Illness Chief Complaint: diarrhea Narrative: 79 female with developmental delay, history from ER (and by arabic translator via ER). Here with some 6 weeks of diarrhea and occasional vomiting. W/U has included negative Cdiff and stool pathogens, neg O&P. Seen here 2 days RN [facility] with negative eval except for positive stool lactoferrin and sent home. Returns with persistent symptoms. W/U tonight of note for leukocytosis, CT reporting large loculated uterine fluid collection. IR consulted requested additional imaging. Leather Skinner consulted with negative exam, and vaginal path negative. U/S fails to confirm presence of CT findings. Is admitted due to report of persistent symptoms, now leukocytosis and conflicting imaging. Note that staff report no diarrhea since arrival. Patient has no complaints and denies pain. Review of Systems Unobtainable due to mental status [facility] Medical History Acute alteration in mental status Anemia Anxiety Cataracts, bilateral Cognitive developmental delay Diverticulosis of colon GERD (gastroesophageal reflux disease) Hyperlipidemia Hypothyroidism Impulse control disorder Incontinence Loose stools Mood disorder Osteopenia Syncope Vascular dementia Well adult exam Surgical History History of left hip replacement Social History Smoking/Tobacco Use Status: Never Smoking risk assessment performed?: Yes Alcohol Intake: never Drug use: Never Substance use type: does not use Do you feel safe at home: Yes Additional Social history: Patient has dementia. She lives in an assisted living facility in [facility] Home Medications and Allergies Allergies Allergy/AdvReac Type Severity Reaction Status Date / Time No Known Allergies Allergy Unverified 08/28/20 14:40 Home Medications Medication Instructions Recorded Confirmed Type Ensure 1 02/15/20 History ferrous sulfate 325 mg PO DAILY 02/15/20 08/28/20 History levothyroxine 50 mcg PO DAILY 02/15/20 08/28/20 History melatonin 3 mg PO DAILY 02/15/20 08/28/20 History trazodone 25 mg PO BID 02/15/20 08/28/20 History calcium carbonate 600 mg calcium 600 mg PO BID 08/17/20 08/28/20 History (1,500 mg) tablet loperamide 2 mg capsule 2 mg PO BID PRN cap 08/17/20 08/28/20 History ondansetron HCl 4 mg tablet 4 mg PO Q6H PRN 08/17/20 08/28/20 History cholestyramine (with sugar) 1 packet PO BID 08/28/20 08/28/20 History Exam Narrative Exam Narrative: 175/60, 77, 37.5, 24, 93% RA. HEENT atraumatic; neck supple; lungs clear; heart RRR; abdomen soft and NT; extremities w/o edema; neuro Ox1, moves all 4s Results Labs Result diagrams: 08/28/20 15:00 08/28/20 15:00 Labs: Laboratory Results - last 24 hr 08/28/20 08/28/20 08/28/20 15:00 15:00 18:13 WBC 15.98 H RBC 4.05 Hgb 12.2 Hct 36.1 MCV 89.1 MCH 30.1 MCHC 33.8 RDW 12.9 Plt Count 305 MPV 9.5 Immature Gran % 0.4 Neutrophils % 78.1 Lymphocytes % 12.6 Monocytes % 8.4 Eosinophils % 0.1 Basophils % 0.4 Nucleated RBC % 0 Absolute Neutrophils 12.48 H Absolute Lymphocytes 2.01 Absolute Monocytes 1.34 H Absolute Eosinophils 0.02 Absolute Basophils 0.06 Sodium 135 L Potassium 3.7 Chloride 97 L Carbon Dioxide 28.6 Anion Gap 9.4 BUN 16 D Creatinine 1.1 H Estimated GFR/1.73 m2 48.16 Glucose 156 H Calcium 9.0 Magnesium 1.5 L Total Bilirubin 0.5 AST 31 ALT 26 Alkaline Phosphatase 62 Troponin I 0.07 H 0.08 H* Total Protein 7.1 Albumin 3.1 L Lipase 78 Last Vital Signs Temp 37.5 C 08/28/20 18:10 Pulse 77 08/28/20 22:14 Resp 24 08/28/20 22:14 BP 175/60 H 08/28/20 22:14 Pulse Ox 93 08/28/20 22:14 COVID-19 Screening Have you, or household traveled for leisure in last 14 days?: No Had IN PERSON contact w/suspected or confirmed C-19 person: No
[2020-08-29] VITALS (53 sets, daily range): BP systolic 87–183; BP diastolic 51–99; PULSE 69–104; RESP 16–32; TEMP 36.9–37.8; O2SAT 93–99
[2020-08-29 00:46] LABS: Source Nasal/Nares
[2020-08-29] MEDS: Lactated Ringers 1,000 ML 100 ML IV ×2 (01:09→10:54)
[2020-08-29] MEDS: Levothyroxine 50 MCG TAB PO (06:11)
[2020-08-29 06:42] LABS: HCT 31.9 % (36.0-46.0); HGB 10.7 g/dL (11.2-15.7); MCH 29.9 pg (27.0-33.0); MCHC 33.5 % (32.0-36.0); MCV 89.1 fL (80-95); MPV 9.4 fL (8.0-11.0); Platelet Count 244 10^3/uL (130-400); RBC 3.58 10^6/uL (3.93-5.22); RDW 13.1 % (11.7-14.6); RDW-SD 42.7 fL; WBC 13.67 10^3/uL (4.4-10.8)
[2020-08-29 06:50] LABS: Anion Gap 8.5 mmol/L (3-11); BUN 10 mg/dL (7-18); CO2 27.5 mmol/L (21.0-32.0); CREATININE 0.8 mg/dL (0.55-1.02); Calcium 8.2 mg/dL (8.5-10.1); Chloride 100 mmol/L (98-107); Glucose 106 mg/dL (74-106); Potassium 3.5 mmol/L (3.5-5.1); Sodium 136 mmol/L (136-145)
--- NOTE | 2020-08-29 06:58 | NUR.NOTE ---
Nursing Note: All VS captured by me on 08/29/2020 from 0040 were entered on the wrong patient.
[2020-08-29 08:04] LABS: Troponin I 0.07 ng/mL (<0.06)
--- NOTE | 2020-08-29 08:09 | INITIAL_ITS ---
- If Service Date Differs Date of service: 08/29/20 Time of Service: 08:09 Care Management Initial Assess REASON FOR HOSPITALIZATION:: Chronic diarrhea. PAST MEDICAL HISTORY/PAST SURGICAL HISTORY:: Medical History: Acute alteration in mental status, Anemia, Anxiety,. Cataracts, bilateral, Cognitive developmental delay, Diverticulosis of colon, GERD (gastroesophageal reflux disease), Hyperlipidemia, Hypothyroidism, Impulse control disorder, Incontinence , Loose stools,. Mood disorder, Osteopenia, Syncope, Vascular dementia, and Well adult exam. Surgical History: History of left hip replacement. PREVIOUS FUNCTIONAL STATUS/SOCIAL/FAMILY SUPPORTS:: Joanna is a 79 year old female who resides at the [facility] in [place], [place]. She has intellectual and developmental disabilities and requires around the clock care, which she receives at the [facility]. Joanna enjoys playing [email or web address] and likes to visit with the other residents of [facility]. CURRENT FUNCTIONAL STATUS:: Joanna is laying in bed with the bedsheet pulled over her head when CM comes to meet with her. One of the caregivers from [facility] is present in the room. Joanna asks repeatedly whether she can go home now. Joanna ate a few bites of a toast and reports feeling fine. Per the caregiver, Joanna doesn't ever eat much and she is very fussy about what she does eat. ADVANCE DIRECTIVES:: None on file; Joanna has a state appointed guardian. Has patient been provided with info about the portal/API?: No Did the patient sign up for the portal?: No CODE STATUS:: Full Code INSURANCE COVERAGE / FINANCIAL ISSUES:: Medicare and Medicaid. CURRENT HOME/COMMUNITY SERVICES/EQUIPMENT:: oJanna receives services through the [facility]. She ambulates with a walker. PRIMARY CARE PHYSICIAN:: Joanna Liz MD. POTENTIAL DISCHARGE NEEDS:: Follow up appointments with PCP and urology. PATIENT/FAMILY EDUCATION NEEDS:: Discharge instructions, limitations, and follow up plan of care. ANTICIPATED BARRIERS TO DISCHARGE:: None. TRANSPORTATION:: Via private vehicle with [facility] staff. PLAN:: Joanna will likely be discharged back to the residential [facility] when medically cleared by provider. She will follow up with her PCP, urologist, and discharge plan of care as directed. Staff from the [facility] will drive her home via private vehicle when ready. CM will continue to follow.
--- NOTE | 2020-08-29 09:45 | RT.EKG_ITS ---
APPROVED REPORT Exam: Resting ECG Patient Location: I HR:86 bpm ECG Measurements Heart Rate 86 AXIS NV 197 P 14 QRSd 75 QRS 65 QT 363 T 28 QTc 435 Conclusion Sinus rhythm...normal P axis, V-rate 60- 99
[2020-08-29] MEDS: traZODone 50 MG TAB 25 MG PO (10:54)
--- NOTE | 2020-08-29 11:31 | PHA.REVIEW ---
Pharmacy Admission Review - Admission Clinical Review (Last Reviewed 08/28/20 @ 23:40 by Anatoliy Yip MD) Vomiting and diarrhea (Acute) Hypomagnesemia (Acute) Nausea & vomiting (Acute) Abdominal fluid collection (Acute) Elevated troponin (Acute) No Known Allergies Allergy (Unverified 08/28/20 14:40) Weight 47.7 kg - Renal Dosing Renal Dosing: BUN 10 mg/dL (7-18) D 08/29/20 06:23 Creatinine 0.8 mg/dL (0.55-1.02) 08/29/20 06:23 Medications needing adjustments: Reviewed List of meds needing interventions: notified nursing to obtain height of pt in order to determine eCrCl - Anticoagulation Anticoagulation: Hgb 10.7 g/dL (11.2-15.7) L 08/29/20 06:23 Hct 31.9 % (36.0-46.0) L 08/29/20 06:23 Plt Count 244 10^3/uL (130-400) 08/29/20 06:23 Creatinine 0.8 mg/dL (0.55-1.02) 08/29/20 06:23 Therapeutic Anticoagulation: N/A - Opiate Usage Evaluate Pain Scale/Pains Meds: N/A - Relevant Labs Sodium 136 mmol/L (136-145) 08/29/20 06:23 Potassium 3.5 mmol/L (3.5-5.1) 08/29/20 06:23 Chloride 100 mmol/L (98-107) 08/29/20 06:23 Magnesium 1.5 mg/dL (1.8-2.4) L 08/28/20 15:00 Electrolytes, C-Reactive P, ESR: Reviewed (1 gm IV mag infused in the ED) - DM Control DM Control: Glucose 106 mg/dL (74-106) D 08/29/20 06:23 Insulin Dosing: N/A - Heart Failure/IL Heart Failure/IL: Troponin I 0.07 ng/mL (<0.06) H 08/29/20 06:23 EF%, SABAS's, B-Blockers, Diuretics: Reviewed - BP Control BP Control: Blood Pressure 130/87 Blood Pressure 142/70 Blood Pressure 97/54 Blood Pressure 111/74 Blood Pressure 101/59 Blood Pressure 110/61 Blood Pressure 109/60 Blood Pressure 116/55 Blood Pressure 92/53 Blood Pressure 102/78 Blood Pressure 109/57 Blood Pressure 111/51 Blood Pressure 109/56 Blood Pressure 111/59 Blood Pressure 95/64 Blood Pressure 114/59 Blood Pressure 104/58 Blood Pressure 87/55 Blood Pressure 106/55 Blood Pressure 113/53 Blood Pressure 101/53 Blood Pressure 103/55 Blood Pressure 127/62 Blood Pressure 127/66 Blood Pressure 125/62 Blood Pressure 113/60 Blood Pressure 111/59 Blood Pressure 160/79 Blood Pressure 113/82 Blood Pressure 175/73 Blood Pressure 175/64 Blood Pressure 168/82 Blood Pressure 164/86 Blood Pressure 175/66 Blood Pressure 176/68 Blood Pressure 179/67 Blood Pressure 180/67 Blood Pressure 183/68 Blood Pressure 179/69 Blood Pressure 163/99 Blood Pressure 158/77 Blood Pressure 176/65 Blood Pressure 177/69 If elevated: Reviewed - Qtc Review If Elevated: Reviewed List meds needing interventions: QTc 427 on admission - IV to PO Switch IV Medications: Reviewed - Home Meds Home Med List reviewed: Intervened Relevent Home Meds Not ordered & why?: calcium, cholestyramine, ferrous sulfate, levothyroxine, loperamide; of note: LOVASTATIN, RIVASTIGMINE PATCH, SERTRALINE, OMEPRAZOLE were filled as recently as 08/24/20 but they were discontinued from home med list by ED RN, TRAZODONE dose appears to by 150mg daily (fills 50mg qt 90 for 30 day supply) - Current meds Current Medication Order Review: Reviewed - Comments Comments/Follow Ups: troponin slightly elevated - repeat EKG today; wound culture (source: vaginal) resulted in moderate gram - and gram + growth thus far
[2020-08-29 11:39] LABS: COVID-19 PCR Negative (Negative)
--- NOTE | 2020-08-29 12:41 | W.PM.PROGNOT ---
Date of Service Date of service: 08/29/20 Time of Service: 12:41 Assessment and Plan Assessment and plan (1) Vomiting and diarrhea: Status: Acute Assessment and plan: Patient has had no vomiting since admission and no diarrhea since admission. Reportedly her diarrhea has been going on for 6 weeks. She has had a negative work-up as far as any infectious cause such as C. difficile or bacterial pathogens. Negative this point she can follow-up as an outpatient and see GI for colonoscopy. CT of the abdomen and pelvis also demonstrated some small bowel loop dilatation but no obvious obstruction. We will attempt to try to get her to eat something and if she is tolerating a diet I think she could be discharged home this afternoon. (2) Elevated troponin: Status: Acute Assessment and plan: Patient had a nonspecific elevation of her troponin which was barely above the upper limit of normal at 0.07 and 0.08. Serial EKGs have failed to show any ischemic event. At present time I think this can be followed up as an outpatient with an outpatient echocardiogram and stress MPI. (3) Abdominal fluid collection: Status: Acute Assessment and plan: Reportedly Patient had a fluid collection in the uterus and cervix and possibly in the vagina seen on CT scan however pelvic ultrasound failed to show any adnexal or uterine fluid collection. Again I think this can be followed up as an outpatient with a [facility] appointment. (4) Hypokalemia: Status: Resolved Assessment and plan: Patient had hypokalemia prior to admission but a potassium levels remain within normal limits since admission. (5) Hypomagnesemia: Status: Acute Assessment and plan: Patient had mild hypomagnesemia on admission at 1.5. Repeat level was not performed. I will ask lab to run a repeat level of her morning labs. Subjective Subjective Interval history since last seen: Patient's had no diarrhea since admission. She had only a small smear of stool this morning. Patient is requesting to go home. She was made n.p.o. last night by the six horse hitch driver however I advanced her to a clear liquid diet this morning but she has been refusing to eat. She denies any nausea and denies any abdominal pain. There is no abdominal distention. Patient only wants to return home. Exam Narrative Exam Narrative: Elderly female who is lying in bed with the covers pulled over her head and the shades were pulled down over the window. I open the shades in pull back covers to talk with her. Initially she ignored me kept her eyes shut but after it persisted she open her eyes and briefly spoke with me asking how soon can she go home. She denies any nausea or vomiting. She denies any abdominal pain. When offered a diet she refuses to eat. I will try to advance her from a clear liquid to regular diet as she says the only food she likes is spaghetti. Her abdomen is soft and nondistended with normal bowel sounds. Objective Last Vital Signs Temp 36.9 C 08/29/20 07:49 Pulse 85 08/29/20 07:49 Resp 17 08/29/20 07:49 BP 130/87 08/29/20 07:49 Pulse Ox 95 08/29/20 07:49 Laboratory Results - last 24 hr 08/28/20 08/28/20 08/28/20 15:00 15:00 18:13 WBC 15.98 H RBC 4.05 Hgb 12.2 Hct 36.1 MCV 89.1 MCH 30.1 MCHC 33.8 RDW 12.9 Plt Count 305 MPV 9.5 Immature Gran % 0.4 Neutrophils % 78.1 Lymphocytes % 12.6 Monocytes % 8.4 Eosinophils % 0.1 Basophils % 0.4 Nucleated RBC % 0 Absolute Neutrophils 12.48 H Absolute Lymphocytes 2.01 Absolute Monocytes 1.34 H Absolute Eosinophils 0.02 Absolute Basophils 0.06 Sodium 135 L Potassium 3.7 Chloride 97 L Carbon Dioxide 28.6 Anion Gap 9.4 BUN 16 D Creatinine 1.1 H Estimated GFR/1.73 m2 48.16 Glucose 156 H Calcium 9.0 Magnesium 1.5 L Total Bilirubin 0.5 AST 31 ALT 26 Alkaline Phosphatase 62 Troponin I 0.07 H 0.08 H* Total Protein 7.1 Albumin 3.1 L Lipase 78 COVID-19 Source SARS-CoV-2 (PCR) 08/29/20 08/29/20 08/29/20 00:40 06:23 06:23 WBC 13.67 H RBC 3.58 L Hgb 10.7 L Hct 31.9 L MCV 89.1 MCH 29.9 MCHC 33.5 RDW 13.1 Plt Count 244 MPV 9.4 Immature Gran % Neutrophils % Lymphocytes % Monocytes % Eosinophils % Basophils % Nucleated RBC % Absolute Neutrophils Absolute Lymphocytes Absolute Monocytes Absolute Eosinophils Absolute Basophils Sodium 136 Potassium 3.5 Chloride 100 Carbon Dioxide 27.5 Anion Gap 8.5 BUN 10 D Creatinine 0.8 Estimated GFR/1.73 m2 >= 60.00 Glucose 106 D Calcium 8.2 L Magnesium Total Bilirubin AST ALT Alkaline Phosphatase Troponin I Total Protein Albumin Lipase COVID-19 Source Nasal/nares SARS-CoV-2 (PCR) Negative 08/29/20 06:23 WBC RBC Hgb Hct MCV MCH MCHC RDW Plt Count MPV Immature Gran % Neutrophils % Lymphocytes % Monocytes % Eosinophils % Basophils % Nucleated RBC % Absolute Neutrophils Absolute Lymphocytes Absolute Monocytes Absolute Eosinophils Absolute Basophils Sodium Potassium Chloride Carbon Dioxide Anion Gap BUN Creatinine Estimated GFR/1.73 m2 Glucose Calcium Magnesium Total Bilirubin AST ALT Alkaline Phosphatase Troponin I 0.07 H Total Protein Albumin Lipase COVID-19 Source SARS-CoV-2 (PCR)
[2020-08-29 13:21] LABS: Magnesium 1.9 mg/dL (1.8-2.4)
--- NOTE | 2020-08-29 14:55 | W.PM.DS.N ---
Date of service: 08/29/20 Time of Service: 14:55 DS: Diagnosis Discharge Diagnosis (1) Vomiting and diarrhea: Status: Resolved Asessment and Plan: Patient had no further episodes of vomiting or diarrhea since admission. Patient denies any abdominal pain. Further evaluation can be pursued as needed as an outpatient including GI referral. (2) Elevated troponin: Status: Acute Asessment and Plan: Nonspecific elevation of her troponin with no symptoms of chest pain or dyspnea and no EKG changes. Further evaluation with outpatient stress MPI at the discretion of her PCP. (3) Abdominal fluid collection: Status: Ruled-out Asessment and Plan: CT finding of abnormal fluid collection at the uterus and vagina was not confirmed by intravaginal ultrasound. Further follow-up with OILING MACHINE OPERATOR recommended. (4) Hypokalemia: Status: Resolved Asessment and Plan: Hypokalemia resolved with oral supplementation. Patient will be discharged home on potassium chloride 20 mEq once a day with a follow-up BMP in a week. (5) Hypomagnesemia: Status: Resolved Asessment and Plan: Hypomagnesium of 1.5 on admission resolved with IV and oral supplementation. Follow-up magnesium level is 1.9. Patient will be discharged home on magnesium gluconate with repeat level next week. Discharge Plan Disposition Patient Disposition: HOME Condition: Improving Discharge Details Reason For Visit: CHRONIC DIARRHEA Admit Date/Time: 08/28/20 23:49 Admit Provider: Anatoliy Yip Attending Provider: Anatoliy Yip Primary Care Provider: [facility] Course Hospital Course: 79-year-old female with a history of developmental delay as well as a history of GERD and diverticulosis and hypothyroidism was brought into the emergency department by her body worker with complaints of 6 weeks of diarrhea with occasional nausea and vomiting. Outpatient work-up had been performed including negative C. difficile stool study as well as stools for bacterial pathogens and ova and parasites all negative. 2 days prior to admission she had had a stool was positive for lactoferrin. She presented to the emergency department again last night on August 28, 2020 with similar complaints of nausea vomiting and diarrhea and underwent CT scan of the abdomen pelvis. CT reportedly showed a large loculated uterine fluid collection in the lower uterus as well as the cervix and possibly extending into the vagina. She was also noted to have some mild dilated loops of proximal small bowel. But no obvious evidence of obstruction. Appendix was unremarkable and colon was unremarkable with some scattered diverticuli but no evidence of diverticulitis. There was no ascites. Emergency department requested an CABIN SERVICE AGENT consultation. Dr. Salma Fisher saw the patient perform a transvaginal ultrasound of the patient. Please see Dr. Fisher's note for detail. In essence she saw no acute abnormality in the fluid collection seen on CT examination was not identified on the transvaginal examination. Ovaries were unremarkable. Transabdominal ultrasound was not performed. Vaginal pathogen screen for Nidia and Gardnerella and trichomonas was negative. Gram stain from vaginal fluid showed no white blood cells but showed few gram-positive cocci few gram-negative rods. Preliminary culture showing gram-negative edmund and moderate growth gram-positive digna moderate growth. Final identification is pending at this time. Patient was not started on antibiotics. Patient remains afebrile at this point. She had a mild leukocytosis on admission at 15,000 which is decreased now down to 13,000. Overnight the patient was kept n.p.o. but on the following morning patient was started on a clear liquid diet which she refused. When I evaluated her she says she just was not hungry and did not want to eat anything. At lunchtime we advance her to a solid diet which she ate a few bites and her caregiver who came in indicated that she is a poor eater. Patient is having no abdominal pain and no nausea or vomiting and had no diarrhea since admission. Patient is requesting to return home and her caregiver is willing to take her home with close follow-up. This point I think further work-up can be obtained as an outpatient including a GI referral regarding her alleged chronic diarrhea. Patient should follow-up with Dr. Salma Fisher and follow-up on her vaginal cultures. Patient's hypokalemia and hypomagnesemia were corrected and patient will be started on oral supplementation with follow-up labs next week. Patient is discharged home in improved condition. Of note patient had a nonspecific elevation of her troponin in which her troponin level was 0.07 on presentation to the emergency department yesterday and repeat level 3 hours later was 0.08 follow-up one in the next morning was 0.07. Patient's had no symptoms of dyspnea or chest pain and serial EKG showed no acute ischemic event. I will defer to her PCP as to whether or not to pursue noninvasive stress test. Home Meds and New Rx's Prescriptions: New potassium chloride 20 mEq tablet extended release 20 meq PO DAILY Qty: 30 RF: 0 magnesium gluconate 27 mg magnesium (500 mg) tablet 27 mg PO DAILY Qty: 30 RF: 0 Continued ondansetron HCl 4 mg tablet 4 mg PO Q6H PRNRF: 0 calcium carbonate [Calcium 600] 600 mg calcium (1,500 mg) tablet 600 mg PO BID RF: 0 trazodone 50 mg Tablet 25 mg PO BID RF: 0 melatonin 3 mg Tablet 3 mg PO DAILY RF: 0 levothyroxine 50 mcg Tablet 50 mcg PO DAILY RF: 0 ferrous sulfate 325 mg (65 mg iron) Tablet 325 mg PO DAILY RF: 0 Ensure Liquid 1 RF: 0 cholestyramine (with sugar) 4 gram powder in packet 1 packet PO BID RF: 0 Discontinued loperamide [Imodium A-D] 2 mg capsule 2 mg PO BID PRNRF: 0 Discharge Instructions Stand Alone Forms: Nursing Discharge Form Referrals: Joanna Liz [Primary Care Provider] - (Follow-up with your primary care provider in the next week *PLEASE CALL MONDAY TO MAKE AN APPOINTMENT) Salma Fisher MD [ [facility] STAFF PHYSICIAN] - (Call the office on Monday for follow-up in the next 2-3 weeks) Activity:: Activity as Tolerated Equipment/Supplies:: No Equipment Needed Diet:: Normal Diet Discharge Orders Discharge Orders: Discharge Order (Routine); Ordered 08/29/20 Ordered By: Pernell Bartlett Other Ambulatory Orders: Basic Metabolic Panel (Routine) Timeframe: 3 Days Facility: [facility] - Location: Laboratory Outpatient Ordered By: Pernell Bartlett Complete Blood Count w/Diff (Routine) Timeframe: 3 Days Facility: [facility] - Location: Laboratory Outpatient Ordered By: Pernell Bartlett Magnesium (Routine) Timeframe: 3 Days Facility: [facility] - Location: Laboratory Outpatient Ordered By: Pernell Bartlett Discharge Data Discharge Date/Time-TO BE ENTERED AT DEPARTURE: 08/29/20 15:55 DS: Summary Time Spent with Patient providing and/or coordinating discharge services: Greater than 30 minutes Status at Discharge Functional status at discharge: independent ambulation Overall status at discharge: patient is back to baseline Mental Status: mental status grossly normal and other Speech and Movement: speech and movement normal Mood: congruent mood and other Affect: normal affect Exam Narrative Exam Narrative: Elderly female who is lying in bed with the covers pulled over her head and the shades were pulled down over the window. I open the shades in pull back covers to talk with her. Initially she ignored me kept her eyes shut but after it persisted she open her eyes and briefly spoke with me asking how soon can she go home. She denies any nausea or vomiting. She denies any abdominal pain. When offered a diet she refuses to eat. I will try to advance her from a clear liquid to regular diet as she says the only food she likes is spaghetti. Her abdomen is soft and nondistended with normal bowel sounds. Psych Mental Status: mental status grossly normal and other Speech and Movement: speech and movement normal Mood: congruent mood and other Affect: normal affect DS: Data Vitals/I&O Vitals and I&O: Vital Signs Temperature 36.9 C 08/29/20 07:49 Temperature Source Temporal Artery Scan 08/29/20 07:49 Pulse 85 08/29/20 07:49 Pulse Rhythm Regular 08/29/20 14:02 Pulse 94 H 08/29/20 00:41 Respiratory Rate 17 08/29/20 07:49 Respiratory Effort Non-Labored 08/29/20 14:02 Respiratory Depth Normal 08/29/20 14:02 Respiratory Pattern Normal 08/29/20 14:02 Blood Pressure 130/87 08/29/20 07:49 Blood Pressure Mean 65 08/29/20 04:48 Blood Pressure Position Sitting 08/28/20 14:37 Pulse Oximetry 95 08/29/20 07:49 Respiratory End-tidal CO2 24 08/28/20 21:18 Oxygen Delivery Method Room Air 08/29/20 07:49 Oxygen Flow Rate 0 08/29/20 07:49 Pain Level 0 08/29/20 07:49 Intake & Output 08/28/20 08/29/20 08/29/20 23:59 11:59 23:59 Intake Total 1110 / 1110 1075 / 1075 Balance 1110 / 1110 1075 / 1075 Weight 48.534 kg 47.7 kg Intake: IV 1110 / 1110 1075 / 1075 Other: Urine Color Yellow Urine Appearance Clear Urine Odor Strong Comment Moderate amount of urine in diaper. Voiding Methods Diaper Incontinent # Voids 1 Data Completed and Pending Labs on day of discharge: Labs from last 24 hours 08/29/20 08/29/20 08/29/20 06:23 06:23 06:23 WBC 13.67 H RBC 3.58 L Hgb 10.7 L Hct 31.9 L MCV 89.1 MCH 29.9 MCHC 33.5 RDW 13.1 Plt Count 244 MPV 9.4 Immature Gran % Neutrophils % Lymphocytes % Monocytes % Eosinophils % Basophils % Nucleated RBC % Absolute Neutrophils Absolute Lymphocytes Absolute Monocytes Absolute Eosinophils Absolute Basophils Sodium 136 Potassium 3.5 Chloride 100 Carbon Dioxide 27.5 Anion Gap 8.5 BUN 10 D Creatinine 0.8 Estimated GFR/1.73 m2 >= 60.00 Glucose 106 D Calcium 8.2 L Magnesium Total Bilirubin AST ALT Alkaline Phosphatase Troponin I 0.07 H Total Protein Albumin Lipase Tiss Transglutamin IgG Tiss Transglutamin IgA Chlamydia DNA Probe Chlamydia/GC DNA Source COVID-19 Source SARS-CoV-2 (PCR) N.gonorrhoeae DNA Probe 08/29/20 08/29/20 08/28/20 06:22 00:40 21:10 WBC RBC Hgb Hct MCV MCH MCHC RDW Plt Count MPV Immature Gran % Neutrophils % Lymphocytes % Monocytes % Eosinophils % Basophils % Nucleated RBC % Absolute Neutrophils Absolute Lymphocytes Absolute Monocytes Absolute Eosinophils Absolute Basophils Sodium Potassium Chloride Carbon Dioxide Anion Gap BUN Creatinine Estimated GFR/1.73 m2 Glucose Calcium Magnesium 1.9 Total Bilirubin AST ALT Alkaline Phosphatase Troponin I Total Protein Albumin Lipase Tiss Transglutamin IgG Tiss Transglutamin IgA Chlamydia DNA Probe Pending Chlamydia/GC DNA Source Pending COVID-19 Source Nasal/nares SARS-CoV-2 (PCR) Negative N.gonorrhoeae DNA Probe Pending 08/28/20 08/28/20 08/28/20 18:13 15:00 15:00 WBC 15.98 H RBC 4.05 Hgb 12.2 Hct 36.1 MCV 89.1 MCH 30.1 MCHC 33.8 RDW 12.9 Plt Count 305 MPV 9.5 Immature Gran % 0.4 Neutrophils % 78.1 Lymphocytes % 12.6 Monocytes % 8.4 Eosinophils % 0.1 Basophils % 0.4 Nucleated RBC % 0 Absolute Neutrophils 12.48 H Absolute Lymphocytes 2.01 Absolute Monocytes 1.34 H Absolute Eosinophils 0.02 Absolute Basophils 0.06 Sodium Potassium Chloride Carbon Dioxide Anion Gap BUN Creatinine Estimated GFR/1.73 m2 Glucose Calcium Magnesium Total Bilirubin AST ALT Alkaline Phosphatase Troponin I 0.08 H* Total Protein Albumin Lipase Tiss Transglutamin IgG Pending Tiss Transglutamin IgA Pending Chlamydia DNA Probe Chlamydia/GC DNA Source COVID-19 Source SARS-CoV-2 (PCR) N.gonorrhoeae DNA Probe 08/28/20 15:00 WBC RBC Hgb Hct MCV MCH MCHC RDW Plt Count MPV Immature Gran % Neutrophils % Lymphocytes % Monocytes % Eosinophils % Basophils % Nucleated RBC % Absolute Neutrophils Absolute Lymphocytes Absolute Monocytes Absolute Eosinophils Absolute Basophils Sodium 135 L Potassium 3.7 Chloride 97 L Carbon Dioxide 28.6 Anion Gap 9.4 BUN 16 D Creatinine 1.1 H Estimated GFR/1.73 m2 48.16 Glucose 156 H Calcium 9.0 Magnesium 1.5 L Total Bilirubin 0.5 AST 31 ALT 26 Alkaline Phosphatase 62 Troponin I 0.07 H Total Protein 7.1 Albumin 3.1 L Lipase 78 Tiss Transglutamin IgG Tiss Transglutamin IgA Chlamydia DNA Probe Chlamydia/GC DNA Source COVID-19 Source SARS-CoV-2 (PCR) N.gonorrhoeae DNA Probe Preliminary micro results at discharge 08/28/20 21:10 Wound Culture - Preliminary Vaginal Gram Negative Edmund Gram Positive Digna [facility] Medical History Acute alteration in mental status Anemia Anxiety Cataracts, bilateral Cognitive developmental delay Diverticulosis of colon GERD (gastroesophageal reflux disease) Hyperlipidemia Hypothyroidism Impulse control disorder Incontinence Loose stools Mood disorder Osteopenia Syncope Vascular dementia Well adult exam Surgical History History of left hip replacement Social History Smoking/Tobacco Use Status: Never Smoking risk assessment performed?: Yes Alcohol Intake: never Drug use: Never Substance use type: does not use Do you feel safe at home: Yes Additional Social history: Patient has dementia. She lives in an assisted living facility in [place]
--- NOTE | 2020-08-29 15:32 | PDOC.CMDIS ---
- If Service Date Differs Date of service: 08/29/20 Time of Service: 15:33 LACE Index Scoring Tool - Questions: Length of Stay (in days): 1 Acuity (Admit via E.D.?): Yes Comorbidities: Dementia (Vascular dementia) E.D. Visits: 3 - Answers: Total Score: 10 Risk of Readmission: High Risk Care Management Discharge Reason for Hospitalization: Chronic diarrhea. Discharge Plan: Joanna is discharged home. She will follow up with her PCP, hourly caregiver, GI, and discharge plan of care as directed. [employer] staff are driving her home via private vehicle. Patient/Family Education Needs: Discharge instructions, limitations, and follow up plan of care.
[2020-08-31 15:28] LABS: Chlamydia Result Negative (Negative); GC Result Negative (Negative)
[2020-09-01 18:54] LABS: Tissue Transglutaminase Ab IgA <1.2 U/mL; Tissue Transglutaminase Ab IgG 3.6 U/mL
== END 2020-08-29 15:55 | disposition home or self-care (01) ==
LOC: ER 23:58 → MS 08-29 00:48
PROVIDERS: Emergency Medicine; Internal Medicine; Physician Assistant; Admitting Provider General Practice; Emergency Provider Student in an Organized Health Care Education/Training Program; PCP Family Medicine; Visit Provider General Practice
DX: R11.10 Vomiting, unspecified (principal); R19.7 Diarrhea, unspecified; R93.89 Abnormal findings on diagnostic imaging of other specified body structures; R74.8 Abnormal levels of other serum enzymes; F41.9 Anxiety disorder, unspecified; K57.30 Diverticulosis of large intestine without perforation or abscess without bleeding; K21.9 Gastro-esophageal reflux disease without esophagitis; E03.9 Hypothyroidism, unspecified; E78.5 Hyperlipidemia, unspecified; F01.50 Vascular dementia, unspecified severity, without behavioral disturbance, psychotic disturbance, mood disturbance, and anxiety; M85.80 Other specified disorders of bone density and structure, unspecified site; D64.9 Anemia, unspecified; R32 Unspecified urinary incontinence; E87.6 Hypokalemia; E83.42 Hypomagnesemia; F81.9 Developmental disorder of scholastic skills, unspecified
CPT/HCPCS: 36415; 80048; 80053; 83690; 85027; 87077; 87491; 87591; 93005; 96361; 96365; 96375; 96376; 99217; 99222; 99225; 99253; 99285; 74177; 76830; 76856; 83516; 83735; 84484; 85025; 87070; 87186; 87205; 87480; 87510; 87660; 93010; 99219; G0378; J2060; J2405; J2704; J3475; Q9967

== ENCOUNTER 2020-09-03 10:11 | Outpatient (REF) | payer MEDICARE, MEDICAID, SELFPAY ==
[2020-09-03 14:07] LABS: Abs Immature Grans 0.06 10^3/uL (0.0-0.06); Absolute Basophil Count 0.08 10^3/uL (0.0-0.2); Absolute Eosinophil Count 0.07 10^3/uL (0.0-0.7); Absolute Lymphocyte Count 1.84 10^3/uL (1.2-3.4); Absolute Monocyte Count 0.68 10^3/uL (0.1-0.8); Absolute Neutrophil Count 4.48 10^3/uL (1.2-6.7); Basophils % 1.1; Immature Grans % 0.8; Lymphocytes % 25.5; MCH 29.9 pg (27.0-33.0); MCHC 33.3 % (32.0-36.0); MCV 89.6 fL (80-95); MPV 10.5 fL (8.0-11.0); Monocytes % 9.4; Neutrophils % 62.2; Nucleated RBC 0 %; Platelet Count 403 10^3/uL (130-400); RBC 4.02 10^6/uL (3.93-5.22); RDW 13.2 % (11.7-14.6); RDW-SD 42.8 fL; WBC 7.21 10^3/uL (4.4-10.8)
[2020-09-03 14:19] LABS: Iron 52 ug/dL (50-170); Total Iron Binding Capacity 202 ug/dL (250-450); Transferrin Sat 26 % (15-50)
[2020-09-03 14:31] LABS: Anion Gap 8.9 mmol/L (3-11); BUN 11 mg/dL (7-18); CO2 28.1 mmol/L (21.0-32.0); CREATININE 1.1 mg/dL (0.55-1.02); Calcium 9.4 mg/dL (8.5-10.1); Chloride 98 mmol/L (98-107); Estimated GFR 48.16 (mL/min/1.73m2); Glucose 97 mg/dL (74-106); Magnesium 1.8 mg/dL (1.8-2.4); Potassium 4.7 mmol/L (3.5-5.1); Sodium 135 mmol/L (136-145)
== END 2020-09-03 10:12 | disposition home or self-care (01) ==
LOC: NCHCN 10:11
PROVIDERS: PCP Family Medicine; Visit Provider Nurse Practitioner Family
DX: E83.42 Hypomagnesemia (principal); D64.9 Anemia, unspecified; R63.0 Anorexia; R41.82 Altered mental status, unspecified; E78.6 Lipoprotein deficiency
CPT/HCPCS: 80048; 83540; 83550; 83735; 85025

== ENCOUNTER 2020-09-24 14:23 | Outpatient (REF) | payer MEDICARE, MEDICAID, SELFPAY ==
[2020-09-24 20:11] LABS: HCT 34.3 % (36.0-46.0); HGB 11.3 g/dL (11.2-15.7); MCH 30.6 pg (27.0-33.0); MCHC 32.9 % (32.0-36.0); MPV 10.3 fL (8.0-11.0); Platelet Count 278 10^3/uL (130-400); RBC 3.69 10^6/uL (3.93-5.22); RDW 14.4 % (11.7-14.6); RDW-SD 48.7 fL; WBC 7.49 10^3/uL (4.4-10.8)
[2020-09-24 20:21] LABS: Anion Gap 6.8 mmol/L (3-11); BUN 21 mg/dL (7-18); CO2 29.2 mmol/L (21.0-32.0); CREATININE 1.1 mg/dL (0.55-1.02); Calcium 9.1 mg/dL (8.5-10.1); Chloride 98 mmol/L (98-107); Estimated GFR 48.16 (mL/min/1.73m2); Glucose 112 mg/dL (74-106); Magnesium 1.7 mg/dL (1.8-2.4); Potassium 4.7 mmol/L (3.5-5.1); Sodium 134 mmol/L (136-145)
[2020-09-24 20:27] LABS: Iron 111 ug/dL (50-170); Total Iron Binding Capacity 222 ug/dL (250-450); Transferrin Sat 50 % (15-50)
== END 2020-09-24 14:24 | disposition home or self-care (01) ==
LOC: NCHCN 14:23
PROVIDERS: PCP Family Medicine; Visit Provider Nurse Practitioner Family
DX: D64.9 Anemia, unspecified (principal); E83.42 Hypomagnesemia; E87.6 Hypokalemia
CPT/HCPCS: 80048; 85027; 83540; 83550; 83735

== ENCOUNTER → 2020-09-30 13:59 | Outpatient (BNVA) | payer MEDICARE, MEDICAID, SELFPAY | PROVIDERS: PCP Family Medicine; Referring Provider Family Medicine; Visit Provider Psychiatry & Neurology Neurology | DX: R68.89 Other general symptoms and signs (principal); R41.89 Other symptoms and signs involving cognitive functions and awareness; F41.9 Anxiety disorder, unspecified | CPT/HCPCS: 99215; G2212 ==

== ENCOUNTER 2020-10-06 04:00 | Outpatient (CLI) | payer MEDICARE, MEDICAID, SELFPAY ==
--- NOTE | 2020-11-09 08:23 | W.CARDEVENT ---
Date of service: 11/09/20 Time of Service: 08:23 Cardiac Event Recorder Referring Provider:: garrett Indications:: Atrial fibrillation Cardiac Event Note: There is a 30-day monitor ordered for indication of atrial fibrillation. ?Patient was normal sinus rhythm for the majority of the recording with an average heart of 90 bpm. There was 1 episode of ventricular tachycardia lasting a total of 5 beats. ?There were 2 episodes reported as atrial fibrillation but those are likely normal sinus rhythm with a PVC. ?There were no pauses greater than 3 seconds and no evidence of high degree heart block. ?There were 5 patient triggered events all associated with sinus rhythm.
== END 2020-10-06 04:01 | disposition home or self-care (01) ==
PROVIDERS: PCP Family Medicine; Visit Provider Psychiatry & Neurology Neurology
DX: R41.89 Other symptoms and signs involving cognitive functions and awareness (principal)
CPT/HCPCS: 93270

== ENCOUNTER 2020-10-08 19:58 | Outpatient (REF) | payer MEDICARE, MEDICAID, SELFPAY ==
[2020-10-08 13:39] LABS: Bilirubin Negative (Negative); Blood Trace-intact (Negative); Clarity Sl Cloudy (Clear); Glucose Negative (Negative); Ketones Negative (Negative); Leukocyte Esterase Moderate (Negative); Nitrite Negative (Negative); Urobilinogen 0.2 EU/dL (Up TO 0.2)
[2020-10-08 14:58] LABS: Bacteria Many HPF (Negative); C & S Indicated? Yes; Casts Negative LPF (Negative); Crystals Negative HPF (Negative); Epithelial Cells Few HPF (Negative); Mucus Trace (Negative); Other Cells Negative (Negative); WBC >50 HPF (0-5)
== END 2020-10-08 19:59 | disposition home or self-care (01) ==
LOC: NCHCN 19:58
PROVIDERS: PCP Family Medicine; Visit Provider Nurse Practitioner Family
DX: R41.0 Disorientation, unspecified (principal); R82.998 Other abnormal findings in urine
CPT/HCPCS: 87077; 81003; 81015; 87086; 87186

== ENCOUNTER 2020-11-09 08:23 | Outpatient (CLI) | payer MEDICARE, MEDICAID, SELFPAY | END 2020-11-09 08:24 | LOC: CARDO 11-11 16:15 | PROVIDERS: PCP Family Medicine; Referring Provider Psychiatry & Neurology Neurology; Visit Provider Internal Medicine Cardiovascular Disease | DX: I48.91 Unspecified atrial fibrillation (principal); R41.89 Other symptoms and signs involving cognitive functions and awareness | CPT/HCPCS: 93272 ==

== ENCOUNTER → 2020-11-12 07:25 | Outpatient (BNVA) | payer MEDICARE, MEDICAID, SELFPAY | PROVIDERS: PCP Family Medicine; Referring Provider Family Medicine; Visit Provider Psychiatry & Neurology Neurology | DX: R68.89 Other general symptoms and signs (principal); F81.9 Developmental disorder of scholastic skills, unspecified; F03.90 Unspecified dementia, unspecified severity, without behavioral disturbance, psychotic disturbance, mood disturbance, and anxiety | CPT/HCPCS: 99443 ==

== ENCOUNTER 2020-11-16 09:09 | Observation (INO) | payer MEDICARE, MEDICAID, SELFPAY ==
[2020-11-16] VITALS (36 sets, daily range): BP systolic 96–145; BP diastolic 36–100; PULSE 45–67; RESP 12–25; TEMP 36.3–36.9; O2SAT 90–100
--- NOTE | 2020-11-16 09:30 | RT.EKG_ITS ---
APPROVED REPORT Exam: Resting ECG Reason for Exam: SYNCOPE Patient Location: E HR:57 bpm ECG Measurements Heart Rate 57 AXIS LA 209 P 0 QRSd 75 QRS 63 QT 405 T 30 QTc 394 Conclusion Sinus bradycardia...rate< 60. No STEMI. I have reviewed and interpreted ECG and agree with software generated interpretation.
[2020-11-16 09:51] LABS: Abs Immature Grans 0.01 10^3/uL (0.0-0.06); Absolute Basophil Count 0.06 10^3/uL (0.0-0.2); Absolute Eosinophil Count 0.18 10^3/uL (0.0-0.7); Absolute Lymphocyte Count 1.96 10^3/uL (1.2-3.4); Absolute Monocyte Count 0.56 10^3/uL (0.1-0.8); Absolute Neutrophil Count 2.69 10^3/uL (1.2-6.7); Basophils % 1.1; Eosinophils % 3.3; HCT 34.2 % (36.0-46.0); HGB 11.7 g/dL (11.2-15.7); Immature Grans % 0.2; Lymphocytes % 35.9; MCH 30.5 pg (27.0-33.0); MCHC 34.2 % (32.0-36.0); MCV 89.3 fL (80-95); MPV 9.2 fL (8.0-11.0); Monocytes % 10.3; Neutrophils % 49.2; Nucleated RBC 0 %; Platelet Count 285 10^3/uL (130-400); RBC 3.83 10^6/uL (3.93-5.22); RDW 13.9 % (11.7-14.6); RDW-SD 45.4 fL; WBC 5.46 10^3/uL (4.4-10.8)
[2020-11-16 10:11] LABS: ALT 23 U/L (14-59); AST 21 U/L (15-37); Albumin 3.5 g/dL (3.4-5.0); Alkaline Phosphatase 64 U/L (46-116); Anion Gap 7.7 mmol/L (3-11); BUN 19 mg/dL (7-18); Bilirubin, Total 0.3 mg/dL (0.2-1.0); CO2 28.3 mmol/L (21.0-32.0); CREATININE 1.2 mg/dL (0.55-1.02); Calcium 9.8 mg/dL (8.5-10.1); Chloride 101 mmol/L (98-107); Estimated GFR 43.56 (mL/min/1.73m2); Glucose 95 mg/dL (74-106); Lipase 54 U/L (73-393); Magnesium 1.7 mg/dL (1.8-2.4); Potassium 4.9 mmol/L (3.5-5.1); Sodium 137 mmol/L (136-145); TSH 1.39 uIU/mL (0.36-3.74); Total Protein 7.6 g/dL (6.4-8.2)
--- NOTE | 2020-11-16 10:11 | ED.GENADUL_ITS ---
Discharge Plan Discharge Details Chief Complaint: Seizure Admit Date/Time: 11/16/20 11:43 Admit Provider: Joey Carrillo Attending Provider: Joey Carrillo Primary Care Provider: Joanna Liz ED Provider: Loretta Pederson Discharge Data Discharge Date/Time-TO BE ENTERED AT DEPARTURE: 11/16/20 12:34 Medical Decision Making I had a 60+ minute conversation with Nina Clemente, guardian assigned for patient regarding CODE STATUS and advanced directive and after father had consultation with act [id number] as determined that patient will be DNR/DNI status, I do believe this is in the best interest of patient, she is quite anxious and does not appear to fully comprehend why she is in the emergency room Per alf staff, she has been declining over the course of the past several months and it sounds like palliative care consultation with Dr. Gamino has indicated that there will be a potential shift to DNR/DNI status In the interim, we will admit patient for urinary tract infection which may well have contributed to patient's syncopal event I did review event monitor and patient had several episodes of arrhythmia, guardian does not want any invasive interventions pacemaker or any resuscitation, but they will consider additional interventions if patient does have recurrent arrhythmia, she is placed on monitoring tech and monitor closely CT does not show evidence of acute pathology Diagnostic labs are otherwise reassuring patient exhibits no evidence of sepsis Discussed with Dr. Hernandez, admitting hospitalist who is comfortable with plan Differential Diagnosis Differential Diagnosis: Seizure, syncope, electrolyte abnormality, urinary tract infection Medical Records Medical records reviewed: Yes I reviewed the patient's medical records. Lab Data Lab results reviewed: Yes I reviewed the patient's lab results. HPI General Mode of arrival: ambulatory . Date/Time Provider Initiated Documentation: 11/16/20 09:16 . Limitations to Documentation: other . Information obtained by: RN/MD and EMS . HPI Narrative: This is a 79-year-old female with history of dementia anxiety presents with report of alteration of mental status. Reportedly approximately 830 this morning she was brought to the bathroom after first waking up and had a 3-minute episode of unresponsiveness with some shaking. She reportedly had her eyes rolled back into her head . She did not fall off the toilet as she was being assisted by 2 staff members. She was immediately at her baseline postevent. [facility] staff states that patient has had these episodes before but this was the longest that she is experienced. There was no incontinence of urine. The event occurred post urination. There was no stool with the episode reportedly. She has no injuries apart from the episode. She was able to ambulate at baseline after the event. Patient reportedly has a guardian, there is no family involved in her care. She has been reportedly tired for the past 2 days. She has not had fever or vomiting reportedly Related Data Home Medications Medication Instructions Recorded Confirmed Ensure 1 02/15/20 11/12/20 levothyroxine 50 mcg PO DAILY 02/15/20 11/16/20 melatonin 3 mg PO HS 02/15/20 11/16/20 calcium carbonate 600 mg calcium 600 mg PO BID 08/17/20 11/16/20 (1,500 mg) tablet ondansetron HCl 4 mg tablet 4 mg PO Q6H PRN 08/17/20 11/16/20 esomeprazole magnesium 20 mg 20 mg PO DAILY #30 cap 09/08/20 11/16/20 capsule,delayed release acetaminophen 650 mg 650 mg PO Q12H 09/30/20 11/16/20 tablet,extended release levetiracetam 500 mg tablet 500 mg PO BID #60 tab 09/30/20 11/16/20 rivastigmine 4.6 mg/24 hour 4.6 mg TRANSDERMAL DAILY 09/30/20 11/16/20 transdermal patch sertraline 50 mg tablet 100 mg PO DAILY tab 11/12/20 11/16/20 Lactobacillus acidophilus PO 11/16/20 11/16/20 budesonide 9 mg PO DAILY 11/16/20 11/16/20 cholecalciferol (vitamin D3) 2,000 unit PO DAILY 11/16/20 11/16/20 magnesium gluconate 27 mg PO DAILY 11/16/20 11/16/20 potassium chloride 20 meq PO DAILY 11/16/20 11/16/20 Previous Rx's Medication Instructions Recorded esomeprazole magnesium 20 mg 20 mg PO DAILY #30 cap 09/08/20 capsule,delayed release levetiracetam 500 mg tablet 500 mg PO BID #60 tab 09/30/20 Allergies Allergy/AdvReac Type Severity Reaction Status Date / Time No Known Allergies Allergy Unverified 11/16/20 09:22 General Stated Complaint: Seizure TAD: 3 Review of Systems Narrative: Review of systems obtained x7 aside from where indicated in HPI [facility] Medical History Adverse drug effect suspected diarrhea from omeprazole Anemia Anxiety Cataracts, bilateral Cognitive developmental delay Diarrhea Diverticulosis of colon GERD (gastroesophageal reflux disease) Hip fracture requiring operative repair November 2019 Hyperlipidemia Hypothyroidism Impulse control disorder Incontinence Mood disorder Nausea & vomiting Osteopenia Palliative care patient Poor appetite always a picky eater, with minimal intake, per staff Unintentional weight loss Vascular dementia Vitamin D deficiency never goes outside suspect very low given her diet and lack of sunshine Surgical History History of left hip replacement Family History Sister GI cancer Brother GI cancer Mother No problems noted. Father No problems noted. Social History Smoking/Tobacco Use Status: Never Smoking risk assessment performed?: Yes Alcohol Intake: never Drug use: Never Substance use type: does not use Caregiver/Support person: Yes Household members: caregiver Housing: other Details: community correction for people with developmental delay Number of Children: 0 Communication Needs: Corrective Lenses and Cannot Read Education Level: elementary school Do you need help understanding health information?: Always current occupation: life long disabled Current gender identity: female What is your relationship status?: never How often do you talk on the phone with friends or family?: never How often do you get together with friends or relatives?: never Panel score (0-1 are the most socially isolated patients): 0 What type of physical activity do you participate in: walking Duration: 15-30 minutes/day Frequency: daily Special shirley needs: No Seatbelt use: always Working smoke detector in home: Yes Fire extinguisher in home: Yes Do you feel safe at home: Yes Do you feel safe in your relationship?: Yes Additional Social history: Patient has life long cognitive delay and now with some mild dementia. She lives in an assisted living facility for people with cognitive delays in [place]. Moved there in December 2019. Spent first half of her life with her parents. Then moved in with a sibling until her brother . Now at alf. PCP is at [facility]. Exam Const General: cooperative and anxious HENMT Face and sinus: No dry mucous membranes Other: No visible evidence of trauma to her head Eyes Pupils: PERRL Neck Other: No carotid bruit Resp Effort & Inspection: normal respiratory effort Auscultation: clear to auscultation bilaterally Cardio Rate: regular rate Rhythm: regular rhythm GI Other: No obvious abdominal tenderness Skin General skin exam: no rashes or lesions noted Neuro General: patient alert Course Vital Signs Vital signs: Vital Signs Temperature 36.9 C 11/16/20 09:17 Pulse 64 11/16/20 09:17 Respiratory Rate 14 11/16/20 09:17 Blood Pressure 145/65 H 11/16/20 09:17 Pulse Oximetry 96 11/16/20 09:17 Temperature 36.9 C 11/16/20 09:17 Temperature Source Skin 11/16/20 09:17 Pulse 64 11/16/20 09:17 Respiratory Rate 14 11/16/20 09:17 Respiratory Effort Non-Labored 11/16/20 09:20 Blood Pressure 145/65 H 11/16/20 09:17 Blood Pressure Position Supine 11/16/20 09:17 Pulse Oximetry 96 11/16/20 09:17 Oxygen Delivery Method Room Air 11/16/20 09:17 Oxygen Flow Rate 0 11/16/20 09:17 Pain Level 0 11/16/20 09:17 Lab/Test Results Lab/Test Results: Laboratory Tests Range/Units 11/16/20 09:38 WBC (4.4-10.8) 10^3/uL 5.46 RBC (3.93-5.22) 10^6/uL 3.83 L Hgb (11.2-15.7) g/dL 11.7 Hct (36.0-46.0) % 34.2 L MCV (80-95) fL 89.3 MCH (27.0-33.0) pg 30.5 MCHC (32.0-36.0) % 34.2 RDW (11.7-14.6) % 13.9 Plt Count (130-400) 10^3/uL 285 MPV (8.0-11.0) fL 9.2 Immature Gran % 0.2 Neutrophils % 49.2 Lymphocytes % 35.9 Monocytes % 10.3 Eosinophils % 3.3 Basophils % 1.1 Nucleated RBC % % 0 Absolute Neutrophils (1.2-6.7) 10^3/uL 2.69 Absolute Lymphocytes (1.2-3.4) 10^3/uL 1.96 Absolute Monocytes (0.1-0.8) 10^3/uL 0.56 Absolute Eosinophils (0.0-0.7) 10^3/uL 0.18 Absolute Basophils (0.0-0.2) 10^3/uL 0.06
[2020-11-16 10:12] LABS: Troponin I < 0.05 ng/mL (<0.06)
[2020-11-16] MEDS: LORazepam 2 MG/ML VIAL 0.5 MG IVP (10:28)
[2020-11-16 10:37] LABS: Bilirubin Negative (Negative); Blood Small (Negative); Clarity Sl Cloudy (Clear); Glucose Negative (Negative); Ketones Negative (Negative); Leukocyte Esterase Large (Negative); Nitrite Positive (Negative); Specific Gravity 1.015 (1.005-1.025); Urobilinogen 0.2 EU/dL (Up TO 0.2)
[2020-11-16 10:48] LABS: WBC >50 HPF (0-5)
[2020-11-16 10:49] LABS: C & S Indicated? Yes
--- NOTE | 2020-11-16 11:05 | DI.CT_ITS ---
Exam(s) CT HEAD WO EXAM: CT HEAD WO CLINICAL HISTORY: LOC, seizure vs sycnope. TECHNIQUE: Imaging Protocol: Axial computed tomography images with coronal and sagittal reformatted images were created and reviewed COMPARISON: CT CT HEAD CERV SPINE FACIAL WO from 02/15/2020 FINDINGS: There are no skull fractures nor fluid in the visualized paranasal sinuses. There is no evidence of intracranial hemorrhage, mass effect, or shift of midline structures. There are no extra-axial fluid collections. The ventricles are not enlarged or shifted and there is no blo od within the ventricular system nor within the basal cisterns. There is bilateral periventricular hypodensity consistent with chronic small vessel disease. There i s no evidence of obvious acute territorial infarction. IMPRESSION: No acute intracranial findings on this noninfused CT scan of the brain. Chronic small-vessel white matter ischemic changes are noted, exhibiting minimal if any significant c hange compared to January 2020. RADIATION DOSE DELIVERED: 614.95mGy.cm Total DLP DATA REPOSITORY: All CT scans at this facility are submitted to the National Radiology Data Registry (NRDR) Dose Index Registry (DIR) with the [employer] [place] [employer] (ACR). RADIATION OPTIMIZATION: All CT scans at this facility use at least one of these dose optimization te chniques: automated exposure control; mA and/or kV adjustment per patient size (includes targeted exa ms where dose is matched to clinical indication); or iterative reconstruction.
[2020-11-16] MEDS: cefTRIAXone 1 GM/50 ML BAG IVPB (12:03)
[2020-11-16 12:08] LABS: Source Nasal/Nares
[2020-11-16] MEDS: LORazepam 2 MG/ML VIAL IM (13:36)
[2020-11-16] MEDS: diphenhydrAMINE 50 MG/ML VIAL 25 MG IM (13:37)
[2020-11-16] MEDS: Heparin 5,000 UNITS/ML VIAL 5000 UNITS SC ×2 (13:38→22:07)
[2020-11-16] MEDS: Haloperidol 5 MG/ML VIAL 4 MG IM (13:38)
[2020-11-16] MEDS: Normal Saline 1,000 ML 60 ML IV (13:39)
[2020-11-16] MEDS: Normal Saline Flush 10 ML SYR IVP (13:39)
--- NOTE | 2020-11-16 14:33 | PT.INNT ---
Date of service: 11/16/20 Time of Service: 14:33 PT Notes Visit Reasons: Micturation Syncope, UTI Patient is sedated and is unable to participate at this time. Will attempt evaluation tomorrow morning, as ordered. Thank you for the opportunity to participate in the care of this patient. Olesya Melo PT, DPT, CLT [facility] [place], [place]
[2020-11-16 14:48] LABS: COVID-19 PCR Negative (Negative)
--- NOTE | 2020-11-16 17:04 | W.PM.HP.N ---
Date of service: 11/16/20 Time of Service: 17:04 Assessment and Plan Assessment and plan (1) UTI (urinary tract infection): Start date: 11/16/20 Start time: 13:00 Status: Acute Assessment and plan: With leuk estrase and nitrate in urine and AMS, awaiting urine cx on ceftriaxone continue to monitor bladder scans (2) Palliative care status: Start date: 11/16/20 Start time: 13:00 Status: Acute Assessment and plan: Palliative to follow for goals of care (3) Anxiety: Start date: 11/16/20 Start time: 17:39 Status: Chronic Assessment and plan: given B52 for agitation with 5 mg valium as needed for agitation and anxiety (4) Dementia: Start date: 11/16/20 Start time: 13:00 Status: Chronic Assessment and plan: Severe dementia, made DNR/DNI today (5) DVT prophylaxis: Start date: 11/16/20 Start time: 13:00 Status: Acute Assessment and plan: heparin subcut (6) Discharge planning issues: Start date: 11/16/20 Start time: 13:00 Status: Acute Assessment and plan: Patient may require rehab on discharge unsure of plan as this time will refer to CM at this time above discussed with dr. greene History of Present Illness History of Present Illness Chief Complaint: Dementia, UTI, Mictiration Syncope Narrative: 79 y.o female with PMH of dementia, cognitive delay, who is a joy of the state was as of today a full code, until ethics committee met and determined that she should be DNR/DNI. She presented to ED after supposed syncopal episode after being on the toilet. She is severely demented. Per senior care staff pt had AMS as well. Labs in ED reveal no wbc, elevated bun of 1.2, mag of 1.7, otherwise unremarkable. CT with small vessel white matter ischemic changes. Urine with positive and large amount leuk est and wbc greater than 50. He was asked to be admitted to m/s on teley. She has history of afib as well. she was started on ceftriaxone. On evaluation she is severely demented unable to answer questions continues to ask if she can go home and has bouts of crying, she is distracted by ice cream. She was given a b52 shot to help with agitation as she was trying to crawl out of bed and uncooperative per nursing. She will also have valium as needed prn for agitation. Review of Systems All systems reviewed & are unremarkable except as noted in HPI and below PFSH Medical History Adverse drug effect suspected diarrhea from omeprazole Anemia Anxiety Cataracts, bilateral Cognitive developmental delay Diarrhea Diverticulosis of colon GERD (gastroesophageal reflux disease) Hip fracture requiring operative repair November 2019 Hyperlipidemia Hypothyroidism Impulse control disorder Incontinence Mood disorder Nausea & vomiting Osteopenia Palliative care patient Poor appetite always a picky eater, with minimal intake, per staff Unintentional weight loss Vascular dementia Vitamin D deficiency never goes outside suspect very low given her diet and lack of sunshine Surgical History History of left hip replacement Family History Sister GI cancer Brother GI cancer Mother No problems noted. Father No problems noted. Social History Smoking/Tobacco Use Status: Never Smoking risk assessment performed?: Yes Alcohol Intake: never Drug use: Never Substance use type: does not use Caregiver/Support person: Yes Household members: caregiver Housing: other Details: [facility] Number of Children: 0 Communication Needs: Corrective Lenses and Cannot Read Education Level: elementary school Do you need help understanding health information?: Always current occupation: life long disabled Current gender identity: female What is your relationship status?: never How often do you talk on the phone with friends or family?: never How often do you get together with friends or relatives?: never Panel score (0-1 are the most socially isolated patients): 0 What type of physical activity do you participate in: walking Duration: 15-30 minutes/day Frequency: daily Special shirley needs: No Seatbelt use: always Working smoke detector in home: Yes Fire extinguisher in home: Yes Do you feel safe at home: Yes Do you feel safe in your relationship?: Yes Additional Social history: Patient has life long cognitive delay and now with some mild dementia. She lives in an assisted living facility for people with cognitive delays in [place]. Moved there in December 2019. Spent first half of her life with her parents. Then moved in with a sibling until her brother . [facility]. PCP is at [facility]. Meds Allergies and Home Medications Allergies Allergy/AdvReac Type Severity Reaction Status Date / Time No Known Allergies Allergy Unverified 11/16/20 09:22 Home Medications Medication Instructions Recorded Confirmed Type Ensure 1 02/15/20 11/12/20 History levothyroxine 50 mcg PO DAILY 02/15/20 11/16/20 History melatonin 3 mg PO HS 02/15/20 11/16/20 History calcium carbonate 600 mg calcium 600 mg PO BID 08/17/20 11/16/20 History (1,500 mg) tablet ondansetron HCl 4 mg tablet 4 mg PO Q6H PRN 08/17/20 11/16/20 History esomeprazole magnesium 20 mg 20 mg PO DAILY #30 cap 09/08/20 11/16/20 Rx capsule,delayed release acetaminophen 650 mg 650 mg PO Q12H 09/30/20 11/16/20 History tablet,extended release levetiracetam 500 mg tablet 500 mg PO BID #60 tab 09/30/20 11/16/20 Rx rivastigmine 4.6 mg/24 hour 4.6 mg TRANSDERMAL DAILY 09/30/20 11/16/20 History transdermal patch sertraline 50 mg tablet 100 mg PO DAILY tab 11/12/20 11/16/20 History Lactobacillus acidophilus PO 11/16/20 11/16/20 History budesonide 9 mg PO DAILY 11/16/20 11/16/20 History cholecalciferol (vitamin D3) 2,000 unit PO DAILY 11/16/20 11/16/20 History magnesium gluconate 27 mg PO DAILY 11/16/20 11/16/20 History potassium chloride 20 meq PO DAILY 11/16/20 11/16/20 History Exam Narrative Exam Narrative: Patient uncooperative with exam she is agitated and having bouts of crying not following commands crying, unable to listen to breath sounds and heart rate. BS x 4. Results Labs Result diagrams: 11/16/20 09:38 11/16/20 09:38 Labs: Laboratory Results - last 24 hr 11/16/20 11/16/20 11/16/20 09:38 09:38 10:13 WBC 5.46 RBC 3.83 L Hgb 11.7 Hct 34.2 L MCV 89.3 MCH 30.5 MCHC 34.2 RDW 13.9 Plt Count 285 MPV 9.2 Immature Gran % 0.2 Neutrophils % 49.2 Lymphocytes % 35.9 Monocytes % 10.3 Eosinophils % 3.3 Basophils % 1.1 Nucleated RBC % 0 Absolute Neutrophils 2.69 Absolute Lymphocytes 1.96 Absolute Monocytes 0.56 Absolute Eosinophils 0.18 Absolute Basophils 0.06 Sodium 137 Potassium 4.9 Chloride 101 Carbon Dioxide 28.3 Anion Gap 7.7 BUN 19 H Creatinine 1.2 H Estimated GFR/1.73 m2 43.56 Glucose 95 Calcium 9.8 Magnesium 1.7 L Total Bilirubin 0.3 AST 21 ALT 23 Alkaline Phosphatase 64 Troponin I < 0.05 Total Protein 7.6 Albumin 3.5 Lipase 54 TSH 1.39 Urine Color Yellow Urine Clarity Sl cloudy Urine pH 7.0 Ur Specific [place] 1.015 Urine Protein 30 H Urine Ketones Negative Urine Blood Small H Urine Nitrite Positive H Urine Bilirubin Negative Urine Urobilinogen 0.2 Ur Leukocyte Esterase Large H Urine RBC Not Applicable Urine WBC >50 H Ur Epithelial Cells Not Applicable Urine Crystals Not Applicable Urine Bacteria Not Applicable Urine Mucus Not Applicable Ur Culture Indicated? Yes Urine Glucose Negative COVID-19 Source SARS-CoV-2 (PCR) 11/16/20 12:03 WBC RBC Hgb Hct MCV MCH MCHC RDW Plt Count MPV Immature Gran % Neutrophils % Lymphocytes % Monocytes % Eosinophils % Basophils % Nucleated RBC % Absolute Neutrophils Absolute Lymphocytes Absolute Monocytes Absolute Eosinophils Absolute Basophils Sodium Potassium Chloride Carbon Dioxide Anion Gap BUN Creatinine Estimated GFR/1.73 m2 Glucose Calcium Magnesium Total Bilirubin AST ALT Alkaline Phosphatase Troponin I Total Protein Albumin Lipase TSH Urine Color Urine Clarity Urine pH Ur Specific [place] Urine Protein Urine Ketones Urine Blood Urine Nitrite Urine Bilirubin Urine Urobilinogen Ur Leukocyte Esterase Urine RBC Urine WBC Ur Epithelial Cells Urine Crystals Urine Bacteria Urine Mucus Ur Culture Indicated? Urine Glucose COVID-19 Source Nasal/nares SARS-CoV-2 (PCR) Negative Last Vital Signs Temp 36.5 C 11/16/20 15:37 Pulse 51 L 11/16/20 15:37 Resp 16 11/16/20 15:37 BP 122/67 11/16/20 15:37 Pulse Ox 98 11/16/20 15:37 COVID-19 Screening Have you, or household traveled for leisure in last 14 days?: No Had IN PERSON contact w/suspected or confirmed C-19 person: No
--- NOTE | 2020-11-16 18:23 | PCNE_ITS ---
Date of service: 11/16/20 Time of Service: 18:24 History of Present Illness Narrative: From Admission: History of Present Illness History of Present Illness?Chief Complaint: Dementia, UTI, Mictiration Syncope?Narrative: 79 y.o female with PMH of dementia, cognitive delay, who is a joy of the state was as of today a full code, until ethics committee met and determined that she should be DNR/DNI. She presented to ED after supposed syncopal episode after being on the toilet. She is severely demented. Per [facility] staff pt had AMS as well. Labs in ED reveal no wbc, elevated bun of 1.2, mag of 1.7, otherwise unremarkable. CT with small vessel white matter ischemic changes. Urine with positive and large amount leuk est and wbc greater than 50. He was asked to be admitted to m/s on teley. She has history of afib as well. she was started on ceftriaxone. On evaluation she is severely demented unable to answer questions continues to ask if she can go home and has bouts of crying, she is distracted by ice cream. She was given a b52 shot to help with agitation as she was trying to crawl out of bed and uncooperative per nursing. She will also have valium as needed prn for agitation. ? Interim hx; Joanna is lying in her bed. She has been sleeping now for the last hour or so. She is relaxed and calm. She was unable to answer any questions Consults Consult date: 11/16/20 Requesting physician: Jayla Escobedo Assessment and Plan Assessment and plan (1) Dementia: Status: Chronic (2) UTI (urinary tract infection): Status: Acute (3) Spells of decreased attentiveness: Status: Acute (4) Cognitive developmental delay: Status: Chronic (5) Palliative care patient: Status: Acute Assessment and plan: Joanna is normally seen by Dr. Hafsa Gamino. Dr. Gamino is off today but will see her tomorrow. She is a 79-year-old woman with severe dementia. There are is concerned because she is bradycardic. I spoke with Nina Clemente her legal guardian appointed by the courts. Nina stated that Joanna did not want interventions such as a pacemaker. She was concerned because Joanna has Holter monitor stated that she had V. tach. There was also consideration for transferring Joanna to [facility]. There was an emergency ethics committee meeting and Joanna was changed from full code to DNR/DNI. Joanna was severely agitated in the hospital. When I saw her she was quietly resting. She did have her heart rate monitor on and it was in the 40s and 50s. She seemed comfortable. I had spoken with Nina Clemente at [phone]. I did review the Holter and explained that some of the findings were not indicative of severe heart disease, but that Joanna does have bradycardia. The treatment for that would be pacemaker. Nina states that Joanna did not want this. Nina wanted some ideas as to how to better help Joanna when she is agitated and has these events. This will be addressed tomorrow when we have more information and Dr. Gamino is available. Based on Joanna's history, our conversation with Nina, and her present state with the bradycardia I would recommend that she remain a DNR/DNI. I will discuss this with Dr. Gamino. Review of Systems Unobtainable due to mental condition [facility] Medical History Adverse drug effect suspected diarrhea from omeprazole Anemia Anxiety Cataracts, bilateral Cognitive developmental delay Diarrhea Diverticulosis of colon GERD (gastroesophageal reflux disease) Hip fracture requiring operative repair November 2019 Hyperlipidemia Hypothyroidism Impulse control disorder Incontinence Mood disorder Nausea & vomiting Osteopenia Palliative care patient Poor appetite always a picky eater, with minimal intake, per staff Unintentional weight loss Vascular dementia Vitamin D deficiency never goes outside suspect very low given her diet and lack of sunshine Surgical History History of left hip replacement Family History Sister GI cancer Brother GI cancer Mother No problems noted. Father No problems noted. Social History Smoking/Tobacco Use Status: Never Smoking risk assessment performed?: Yes Alcohol Intake: never Drug use: Never Substance use type: does not use Caregiver/Support person: Yes Household members: caregiver Housing: other Details: [facility] Number of Children: 0 Communication Needs: Corrective Lenses and Cannot Read Education Level: elementary school Do you need help understanding health information?: Always current occupation: life long disabled Current gender identity: female What is your relationship status?: never How often do you talk on the phone with friends or family?: never How often do you get together with friends or relatives?: never Panel score (0-1 are the most socially isolated patients): 0 What type of physical activity do you participate in: walking Duration: 15-30 minutes/day Frequency: daily Special shirley needs: No Seatbelt use: always Working smoke detector in home: Yes Fire extinguisher in home: Yes Do you feel safe at home: Yes Do you feel safe in your relationship?: Yes Additional Social history: Patient has life long cognitive delay and now with some mild dementia. She lives in an assisted living facility for people with cognitive delays in [place]. Moved there in December 2019. Spent first half of her life with her parents. Then moved in with a sibling until her brother . Now at [facility]. PCP is at [facility]. Exam Narrative Exam Narrative: She is lying in bed in the position. She is very thin. She does not open her eyes even though I try to move her limbs. Her heart is slow but regular. Air movement in her lungs but unable to assess for rales. Abdomen was soft. I do not see any skin breakdown. Her legs are curled but easily straightened. She seems to be resting comfortably. Cardiac Event Recorder Referring Provider:: vs Indications:: Atrial fibrillation Cardiac Event Note: There is a 30-day monitor ordered for indication of atrial fibrillation. ?Patient was normal sinus rhythm for the majority of the recording with an average heart of 90 bpm.? There was 1 episode of ventricular tachycardia lasting a total of 5 beats. ?There were 2 episodes reported as atrial fibrillation but those are likely normal sinus rhythm with a PVC. ?There were no pauses greater than 3 seconds and no evidence of high degree heart block. ?There were 5 patient triggered events all associated with sinus rhythm. Results Last Vital Signs Temp 97.7 F 11/16/20 15:37 Pulse 51 L 11/16/20 15:37 Resp 16 11/16/20 15:37 BP 122/67 11/16/20 15:37 Pulse Ox 98 11/16/20 15:37 Labs Result diagrams: 11/16/20 09:38 11/16/20 09:38 Labs: Laboratory Results - last 24 hr 11/16/20 11/16/20 11/16/20 09:38 09:38 10:13 WBC 5.46 RBC 3.83 L Hgb 11.7 Hct 34.2 L MCV 89.3 MCH 30.5 MCHC 34.2 RDW 13.9 Plt Count 285 MPV 9.2 Immature Gran % 0.2 Neutrophils % 49.2 Lymphocytes % 35.9 Monocytes % 10.3 Eosinophils % 3.3 Basophils % 1.1 Nucleated RBC % 0 Absolute Neutrophils 2.69 Absolute Lymphocytes 1.96 Absolute Monocytes 0.56 Absolute Eosinophils 0.18 Absolute Basophils 0.06 Sodium 137 Potassium 4.9 Chloride 101 Carbon Dioxide 28.3 Anion Gap 7.7 BUN 19 H Creatinine 1.2 H Estimated GFR/1.73 m2 43.56 Glucose 95 Calcium 9.8 Magnesium 1.7 L Total Bilirubin 0.3 AST 21 ALT 23 Alkaline Phosphatase 64 Troponin I < 0.05 Total Protein 7.6 Albumin 3.5 Lipase 54 TSH 1.39 Urine Color Yellow Urine Clarity Sl cloudy Urine pH 7.0 Ur Specific [place] 1.015 Urine Protein 30 H Urine Ketones Negative Urine Blood Small H Urine Nitrite Positive H Urine Bilirubin Negative Urine Urobilinogen 0.2 Ur Leukocyte Esterase Large H Urine RBC Not Applicable Urine WBC >50 H Ur Epithelial Cells Not Applicable Urine Crystals Not Applicable Urine Bacteria Not Applicable Urine Mucus Not Applicable Ur Culture Indicated? Yes Urine Glucose Negative COVID-19 Source SARS-CoV-2 (PCR) 11/16/20 12:03 WBC RBC Hgb Hct MCV MCH MCHC RDW Plt Count MPV Immature Gran % Neutrophils % Lymphocytes % Monocytes % Eosinophils % Basophils % Nucleated RBC % Absolute Neutrophils Absolute Lymphocytes Absolute Monocytes Absolute Eosinophils Absolute Basophils Sodium Potassium Chloride Carbon Dioxide Anion Gap BUN Creatinine Estimated GFR/1.73 m2 Glucose Calcium Magnesium Total Bilirubin AST ALT Alkaline Phosphatase Troponin I Total Protein Albumin Lipase TSH Urine Color Urine Clarity Urine pH Ur Specific [place] Urine Protein Urine Ketones Urine Blood Urine Nitrite Urine Bilirubin Urine Urobilinogen Ur Leukocyte Esterase Urine RBC Urine WBC Ur Epithelial Cells Urine Crystals Urine Bacteria Urine Mucus Ur Culture Indicated? Urine Glucose COVID-19 Source Nasal/nares SARS-CoV-2 (PCR) Negative
[2020-11-16] MEDS: diazePAM 5 MG TAB PO (19:08)
[2020-11-16] MEDS: levETIRAcetam 500 MG TAB PO (21:36)
[2020-11-16] MEDS: Magnesium Oxide 400 MG TAB 800 MG PO (21:48)
[2020-11-16] MEDS: Melatonin 3 MG TAB PO (22:17)
[2020-11-17 03:17] VITALS: BP 136/62; PULSE 51; RESP 17; TEMP 36.8; O2SAT 98
[2020-11-17] MEDS: Heparin 5,000 UNITS/ML VIAL 5000 UNITS SC (06:03)
[2020-11-17] MEDS: Normal Saline 1,000 ML 60 ML IV (06:03)
[2020-11-17] MEDS: Levothyroxine 50 MCG TAB PO (06:03)
[2020-11-17 06:30] LABS: Abs Immature Grans 0.02 10^3/uL (0.0-0.06); Absolute Basophil Count 0.07 10^3/uL (0.0-0.2); Absolute Eosinophil Count 0.23 10^3/uL (0.0-0.7); Absolute Lymphocyte Count 1.73 10^3/uL (1.2-3.4); Absolute Monocyte Count 0.63 10^3/uL (0.1-0.8); Basophils % 1.2; HCT 31.3 % (36.0-46.0); HGB 10.4 g/dL (11.2-15.7); Immature Grans % 0.3; Lymphocytes % 29.9; MCH 30.2 pg (27.0-33.0); MCHC 33.2 % (32.0-36.0); MPV 9.6 fL (8.0-11.0); Monocytes % 10.9; Neutrophils % 53.7; Nucleated RBC 0 %; Platelet Count 242 10^3/uL (130-400); RBC 3.44 10^6/uL (3.93-5.22); RDW-SD 47.1 fL; WBC 5.78 10^3/uL (4.4-10.8)
[2020-11-17 06:37] LABS: Anion Gap 6.4 mmol/L (3-11); BUN 21 mg/dL (7-18); CO2 27.6 mmol/L (21.0-32.0); Calcium 8.7 mg/dL (8.5-10.1); Chloride 106 mmol/L (98-107); Estimated GFR 53.76 (mL/min/1.73m2); Glucose 86 mg/dL (74-106); Magnesium 1.7 mg/dL (1.8-2.4); Potassium 4.4 mmol/L (3.5-5.1); Sodium 140 mmol/L (136-145)
[2020-11-17 07:00] VITALS: PULSE 60
[2020-11-17 07:51] LABS: Procalcitonin < 0.1 ng/mL
[2020-11-17 09:35] VITALS: O2SAT 99
[2020-11-17 10:25] VITALS: BP 154/68; PULSE 65; RESP 12; TEMP 36.6; O2SAT 97
[2020-11-17] MEDS: Calcium Carbonate 1.5 GM TAB PO (10:28)
[2020-11-17] MEDS: Cholecalciferol (Vitamin D3) 1,000 UNIT TAB 2000 UNITS PO (10:29)
[2020-11-17] MEDS: levETIRAcetam 500 MG TAB PO (10:29)
[2020-11-17] MEDS: Potassium Chloride 20 MEQ TABCR PO (10:29)
[2020-11-17] MEDS: diazePAM 5 MG TAB PO (10:29)
[2020-11-17] MEDS: Sertraline 50 MG TAB 100 MG PO (10:30)
[2020-11-17] MEDS: Esomeprazole 20 MG CAPCR PO (10:30)
--- NOTE | 2020-11-17 10:43 | NT_ITS ---
Date of service: 11/17/20 Time of Service: 10:44 PT Notes Visit Reasons: Micturation Syncope, UTI Patient leaves at noon today to return to her group skilled nursing with 16/01 supervision. No skilled PT services were provided during this admission. Thank you for the opportunity to participate in the care of this patient. Olesya Melo PT, DPT, CLT [facility] [place], [place]
--- NOTE | 2020-11-17 10:53 | DSE_ITS ---
Date of service: 11/17/20 Time of Service: 10:54 DS: Diagnosis Discharge Diagnosis (1) Dementia: Status: Chronic (2) UTI (urinary tract infection): Status: Acute (3) Spells of decreased attentiveness: Status: Acute (4) Cognitive developmental delay: Status: Chronic Discharge Plan Disposition Patient Disposition: HOME Condition: Stable Discharge Details Reason For Visit: Micturation Syncope, UTI Admit Date/Time: 11/16/20 11:43 Admit Provider: Joey Carrillo Attending Provider: Joey Carrillo Primary Care Provider: Joanna [facility] Hospital Course: This is a 79 y.o female with history of dementia, cognitive delay, who is a joy of the [facility] discussed by ethics committee and determined that she should be DNR/DNI. She presented to ED after reported syncopal episode after being on the toilet. She is severely demented. Per home staff pt had AMS as well. Labs in ED reveal no wbc, elevated bun of 1.2, mag of 1.7, otherwise unremarkable. CT with small vessel white matter ischemic changes. Urine with positive and large amount leuk est and wbc greater than 50. she was started on ceftriaxone and is now likely at her baseline. She has remained medically stable. She is eating and drinking. Case management has been following and plan is to return home. Her cultures have not been reported yet and still pending. will downstep to keflex while awaiting ID& sensitivities. discharge discussed with Dr Carrillo. Home Meds and New Rx's Prescriptions: New cephalexin 500 mg tablet 500 mg PO BID Qty: 14 RF: 0 Continued rivastigmine 4.6 mg/24 hour patch 24 hour 4.6 mg transdermal DAILY RF: 0 acetaminophen [Pain Relief (acetaminophen)] 650 mg tablet extended release 650 mg PO Q12H RF: 0 levetiracetam 500 mg tablet 500 mg PO BID Qty: 60 RF: 5 sertraline 50 mg tablet 100 mg PO DAILY RF: 0 esomeprazole magnesium [Nexium 24HR] 20 mg capsule,delayed release(DR/EC) 20 mg PO DAILY Qty: 30 RF: 2 ondansetron HCl 4 mg tablet 4 mg PO Q6H PRNRF: 0 calcium carbonate [Calcium 600] 600 mg calcium (1,500 mg) tablet 600 mg PO BID RF: 0 cholecalciferol (vitamin D3) 25 mcg (1,000 unit) tablet 2,000 unit PO DAILY RF: 0 budesonide 3 mg capsule,delayed,extend.release 9 mg PO DAILY RF: 0 potassium chloride 20 mEq tablet,ER particles/crystals 20 meq PO DAILY RF: 0 magnesium gluconate 27 mg magnesium (500 mg) Tablet 27 mg PO DAILY RF: 0 Lactobacillus acidophilus Tablet PO RF: 0 melatonin 3 mg Tablet 3 mg PO HS RF: 0 levothyroxine 50 mcg Tablet 50 mcg PO DAILY RF: 0 Ensure Liquid 1 RF: 0 Discharge Instructions Instructions: Urinary Tract Infection in Women (DC) Stand Alone Forms: Nursing Discharge Form Referrals: Joanna Liz [Primary Care Provider] - (call for an appt for one to two weeks) Anatoliy Ames MD [MD CONSULTING PHYSICIAN] - Activity:: Activity as Tolerated Equipment/Supplies:: No Equipment Needed Diet:: As Tolerated Discharge Orders Discharge Orders: Discharge Order (Routine); Ordered 11/17/20 Ordered By: Kay Michaels Discharge Data Discharge Date/Time-TO BE ENTERED AT DEPARTURE: 11/17/20 12:05 DS: Summary Time Spent with Patient providing and/or coordinating discharge services: Less than 30 minutes Status at Discharge Functional status at discharge: uses cane/walker Overall status at discharge: patient is progressing back to baseline Mental Status: other (demented) Speech and Movement: other Mood: other (demented) Affect: normal affect Exam Const General: cooperative HENMT Face and sinus: No dry mucous membranes Eyes Pupils: PERRL Resp Effort & Inspection: normal respiratory effort Auscultation: clear to auscultation bilaterally Cardio Rate: regular rate Rhythm: regular rhythm Skin General skin exam: no rashes or lesions noted Neuro General: patient alert Psych Mental Status: other (demented) Speech and Movement: other Mood: other (demented) Affect: normal affect DS: Data Vitals/I&O Vitals and I&O: Vital Signs Temperature 36.6 C 11/17/20 10:25 Temperature Source Temporal Artery Scan 11/17/20 10:25 Pulse 65 11/17/20 10:25 Pulse Rhythm Regular 11/16/20 23:15 Pulse 49 L 11/16/20 12:01 Respiratory Rate 12 11/17/20 10:25 Respiratory Effort Non-Labored 11/16/20 23:15 Respiratory Depth Normal 11/16/20 23:15 Respiratory Pattern Normal 11/16/20 23:15 Blood Pressure 154/68 H 11/17/20 10:25 Blood Pressure Mean 58 11/16/20 12:00 Blood Pressure Position Supine 11/16/20 09:17 Pulse Oximetry 97 11/17/20 10:25 Oxygen Delivery Method Room Air 11/17/20 10:25 Oxygen Flow Rate 0 11/17/20 10:25 Pain Level 0 11/17/20 10:25 Comment 11/16/20 23:30 Intake & Output 11/16/20 11/16/20 11/17/20 11:59 23:59 11:59 Intake Total 984 / 984 Output Total Balance - 984 / 984 Weight 52.6 kg 46.266 kg Intake: IV 984 / 984 Output: Urine Other: Urine Color Yellow Yellow Urine Odor Normal None Comment pt checked at this time and found to be clean and dry.pt is asleep and wakens when touched Patient incontinent of a small amount of urine into her brief. She was reluctant to allow her brief to be changed initially. No bladder scan done at this time. Voiding Methods Diaper Diaper Incontinent Incontinent Data Completed and Pending Labs on day of discharge: Labs from last 24 hours 11/17/20 11/17/20 11/17/20 06:00 06:00 06:00 WBC 5.78 RBC 3.44 L Hgb 10.4 L Hct 31.3 L MCV 91.0 MCH 30.2 MCHC 33.2 RDW 14.0 Plt Count 242 MPV 9.6 Immature Gran % 0.3 Neutrophils % 53.7 Lymphocytes % 29.9 Monocytes % 10.9 Eosinophils % 4.0 Basophils % 1.2 Nucleated RBC % 0 Absolute Neutrophils 3.10 Absolute Lymphocytes 1.73 Absolute Monocytes 0.63 Absolute Eosinophils 0.23 Absolute Basophils 0.07 Sodium 140 Potassium 4.4 Chloride 106 Carbon Dioxide 27.6 Anion Gap 6.4 BUN 21 H Creatinine 1.0 Estimated GFR/1.73 m2 53.76 Glucose 86 Calcium 8.7 Magnesium 1.7 L Procalcitonin < 0.1 COVID-19 Source SARS-CoV-2 (PCR) 11/16/20 12:03 WBC RBC Hgb Hct MCV MCH MCHC RDW Plt Count MPV Immature Gran % Neutrophils % Lymphocytes % Monocytes % Eosinophils % Basophils % Nucleated RBC % Absolute Neutrophils Absolute Lymphocytes Absolute Monocytes Absolute Eosinophils Absolute Basophils Sodium Potassium Chloride Carbon Dioxide Anion Gap BUN Creatinine Estimated GFR/1.73 m2 Glucose Calcium Magnesium Procalcitonin COVID-19 Source Nasal/nares SARS-CoV-2 (PCR) Negative Preliminary micro results at discharge 11/16/20 10:13 Urine Culture - Preliminary Urine - Reflex from Ua Gram Negative Edmund [facility] Medical History Adverse drug effect suspected diarrhea from omeprazole Anemia Anxiety Cataracts, bilateral Cognitive developmental delay Diarrhea Diverticulosis of colon GERD (gastroesophageal reflux disease) Hip fracture requiring operative repair November 2019 Hyperlipidemia Hypothyroidism Impulse control disorder Incontinence Mood disorder Nausea & vomiting Osteopenia Palliative care patient Poor appetite always a picky eater, with minimal intake, per staff Unintentional weight loss Vascular dementia Vitamin D deficiency never goes outside suspect very low given her diet and lack of sunshine Surgical History History of left hip replacement Family History Sister GI cancer Brother GI cancer Mother No problems noted. Father No problems noted. Social History Smoking/Tobacco Use Status: Never Smoking risk assessment performed?: Yes Alcohol Intake: never Drug use: Never Substance use type: does not use Caregiver/Support person: Yes Household members: caregiver Housing: other Details: community detention for people with developmental delay Number of Children: 0 Communication Needs: Corrective Lenses and Cannot Read Education Level: elementary school Do you need help understanding health information?: Always current occupation: life long disabled Current gender identity: female What is your relationship status?: never How often do you talk on the phone with friends or family?: never How often do you get together with friends or relatives?: never Panel score (0-1 are the most socially isolated patients): 0 What type of physical activity do you participate in: walking Duration: 15-30 minutes/day Frequency: daily Special shirley needs: No Seatbelt use: always Working smoke detector in home: Yes Fire extinguisher in home: Yes Do you feel safe at home: Yes Do you feel safe in your relationship?: Yes Additional Social history: Patient has life long cognitive delay and now with some mild dementia. She lives in an assisted living facility for people with cognitive delays in [place]. Moved there in December 2019. Spent first half of her life with her parents. Then moved in with a sibling until her brother . Now at long-term. PCP is at [facility].
[2020-11-17] MEDS: cefTRIAXone 1 GM/50 ML BAG IVPB (11:23)
--- NOTE | 2020-11-17 15:15 | W.PALPGNOTE ---
Date of service: 11/17/20 Assessment and Plan Assessment and plan (1) Palliative care status: Status: Acute Assessment and plan: Will follow up with Joanna at her [facility] in one month. (2) Cognitive developmental delay: Status: Chronic Assessment and plan: Life long. Has a state guardian. Limited understanding. Well-cared for at [facility]. (3) Diarrhea: Status: Resolved Assessment and plan: Did improve when PPI changed. Would recommend stopping PPI and seeing if her sx resolve. (4) UTI (urinary tract infection): Status: Acute Assessment and plan: Has had several this year, one in August, September and October. Would recommend urology referral. Could be linked to recurrence of her diarrhea. (5) DNI (do not intubate): Status: Acute (6) DNR (do not resuscitate): Status: Acute (7) Patient has guardian: Status: Acute Assessment and plan: Spoke to her substitute guardian, Nova Owens. Her usual guardian is away this week. Will catch up with her when I see Joanna next month. (8) Micturition syncope: Status: Suspected Assessment and plan: Not sure what caused her syncopal episode that occurred prior to this admission. Did not sound like a seizure, per guardian's description. Did occur on the toilet. Dr López, neurology, is still working Joanna up. Subjective Subjective Patient reports: no new complaints, feels better, bowel movement and diarrhea Interval history since last seen: I saw Joanna in her room as she was getting ready to be transported downstairs to be discharged home. She looked to be at her baseline. She repeated several times that she wanted to go home, asking if Yuly was coming to get her. Dr Lerner saw Joanna yesterday for pall care. I reviewed Dr Lerner's note and we discussed Joanna's goals of care. I agree with her suggestion to Joanna's state guardian that Joanna remain DNR.DNI. Note that Joanna had what sounds like micturation syncope prior to this admission. While she was being worked up, the PA in the ER expressed concerns about a recent cardiac nurse specialist that Joanna underwent. I reviewed this report, written by senior sales manager Dr Ames, as did Dr Lerner and Dr López. All 4 of the MDs who reviewed this report did not find it concerning. I reassured Joanna Mcbride's acting state guardian, that Joanna did not need follow up with cardiology at this time. Exam Const General: cooperative HENMT Face and sinus: No dry mucous membranes Eyes Pupils: PERRL Resp Effort & Inspection: normal respiratory effort Auscultation: clear to auscultation bilaterally Cardio Rate: regular rate Rhythm: regular rhythm Skin General skin exam: no rashes or lesions noted Neuro General: patient alert, patient awake and unable to assess gait Cognition: abnormal cognition Speech: abnormal speech Gait: gait assisted (while being transported) Method: wheelchair bound Psych Appearance: grossly normal Mental Status: other (life-long cognitive delay) Speech and Movement: speech and movement abnormal Mood: anxious mood Affect: anxious affect Attitude: cooperative Thought Process: impoverished and perseverating Insight: poor Judgment: poor Objective Last Vital Signs Temp 97.9 F 11/17/20 10:25 Pulse 65 11/17/20 10:25 Resp 12 11/17/20 10:25 BP 154/68 H 11/17/20 10:25 Pulse Ox 97 11/17/20 10:25 Laboratory Results - last 24 hr 11/17/20 11/17/20 11/17/20 06:00 06:00 06:00 WBC 5.78 RBC 3.44 L Hgb 10.4 L Hct 31.3 L MCV 91.0 MCH 30.2 MCHC 33.2 RDW 14.0 Plt Count 242 MPV 9.6 Immature Gran % 0.3 Neutrophils % 53.7 Lymphocytes % 29.9 Monocytes % 10.9 Eosinophils % 4.0 Basophils % 1.2 Nucleated RBC % 0 Absolute Neutrophils 3.10 Absolute Lymphocytes 1.73 Absolute Monocytes 0.63 Absolute Eosinophils 0.23 Absolute Basophils 0.07 Sodium 140 Potassium 4.4 Chloride 106 Carbon Dioxide 27.6 Anion Gap 6.4 BUN 21 H Creatinine 1.0 Estimated GFR/1.73 m2 53.76 Glucose 86 Calcium 8.7 Magnesium 1.7 L Procalcitonin < 0.1
--- NOTE | 2020-11-17 18:18 | CMPROGNOTE_ITS ---
Care Management Progress Note CM coordinated Joanna's return to [facility]; her assisted residence in [place], [place]. BIBI reviewed DC plan with Verenice and Yuly of [facility] and provided contact info to KIMBERLY Hernandez for discharg review. Joanna will transport via private vehicle with Verenice on discharge in Verenice's private vehicle. BIBI notified KIMBERLY Otto of request for additional support to help Joanna into Verenice's vehicle.
== END 2020-11-17 12:05 | disposition home or self-care (01) ==
LOC: ER 09:21 → MS 12:39
PROVIDERS: Nurse Practitioner Family; Admitting Provider Family Medicine; Emergency Provider Physician Assistant; PCP Family Medicine; Visit Provider Family Medicine
DX: N39.0 Urinary tract infection, site not specified; F01.50 Vascular dementia, unspecified severity, without behavioral disturbance, psychotic disturbance, mood disturbance, and anxiety; R55 Syncope and collapse; Z66 Do not resuscitate; I67.89 Other cerebrovascular disease; Z20.822 Contact with and (suspected) exposure to COVID-19; D64.9 Anemia, unspecified; F41.9 Anxiety disorder, unspecified; R19.7 Diarrhea, unspecified; K57.30 Diverticulosis of large intestine without perforation or abscess without bleeding; K21.9 Gastro-esophageal reflux disease without esophagitis; E78.5 Hyperlipidemia, unspecified; E03.9 Hypothyroidism, unspecified; R32 Unspecified urinary incontinence; F39 Unspecified mood [affective] disorder; E55.9 Vitamin D deficiency, unspecified; Z79.899 Other long term (current) drug therapy; R63.4 Abnormal weight loss; Z68.1 Body mass index [BMI] 19.9 or less, adult; F81.9 Developmental disorder of scholastic skills, unspecified
CPT/HCPCS: 36415; 36416; 51702; 80048; 80053; 82962; 83690; 84145; 87077; 87635; 93005; 96365; 96375; 99285; 70450; 81003; 81015; 83735; 84443; 84484; 85025; 87086; 87186; 93010; 99217; G0378; J0696; J1200; J1630; J1644; J2060

== ENCOUNTER 2021-01-05 02:02 | Outpatient (CLI) | payer MEDICARE, MEDICAID, SELFPAY ==
--- NOTE | 2021-01-05 07:30 | DI.RAD_ITS ---
Exam(s) XR HIP LT COMPLETE AP PELVIS EXAM: XR HIP LT COMPLETE AP PELVIS INDICATION: persistent left hip pain and extension of left leg,LT THIGH PAIN,H/O HIP FX. COMPARISON: CR,XR XR PELVIS AP from 02/15/2020 TECHNIQUE: 2D digital imaging was performed. FINDINGS: Stable appearance of left hip prosthesis. No evidence of acute fracture. No abnormal surrounding jimmie cencies. Right hip joint space is well maintained. There is acetabular spurring. Enthesophytes are noted from the iliac wings and greater trochanters. There are severe degenerative changes of the lo wer lumbar spine. IMPRESSION: Stable appearance left hip prosthesis. No acute abnormality. DATA REPOSITORY: RADIATION DOSE DELIVERED:
== END 2021-01-05 02:22 ==
PROVIDERS: PCP Family Medicine; Visit Provider Family Medicine
DX: M25.552 Pain in left hip (principal); Z87.81 Personal history of (healed) traumatic fracture; Z96.642 Presence of left artificial hip joint; Z74.09 Other reduced mobility
CPT/HCPCS: 73502

== ENCOUNTER → 2021-01-07 10:56 | Outpatient (BNVA) | payer MEDICARE, MEDICAID, SELFPAY | PROVIDERS: PCP Family Medicine; Visit Provider Psychiatry & Neurology Neurology | DX: R68.89 Other general symptoms and signs (principal); E78.5 Hyperlipidemia, unspecified; E03.9 Hypothyroidism, unspecified; K21.9 Gastro-esophageal reflux disease without esophagitis; F01.50 Vascular dementia, unspecified severity, without behavioral disturbance, psychotic disturbance, mood disturbance, and anxiety; F81.9 Developmental disorder of scholastic skills, unspecified | CPT/HCPCS: 99213 ==

== ENCOUNTER 2021-02-22 13:08 | Emergency (ER) | payer MEDICARE, MEDICAID, SELFPAY ==
[2021-02-22] VITALS (25 sets, daily range): BP systolic 122–135; BP diastolic 60–90; PULSE 66–79; RESP 13–24; TEMP 36.6–36.8; O2SAT 93–98
--- NOTE | 2021-02-22 13:00 | RT.EKG_ITS ---
APPROVED REPORT Exam: Resting ECG Reason for Exam: unresponsive Patient Location: E HR:71 bpm ECG Measurements Heart Rate 71 AXIS ID 211 P -36 QRSd 76 QRS 39 QT 360 T 33 QTc 391 Conclusion Sinus rhythm...normal P axis, V-rate 60- 99 no HOCM, no WPW, no long QT, no brugada. No STEMI. Non-diagnostic EKG. I have reviewed and interpreted ECG and agree with software generated interpretation.
--- NOTE | 2021-02-22 13:15 | DI.RAD_ITS ---
Exam(s) XR CHEST 2V PA LATERAL EXAM: XR CHEST 2V PA LATERAL CLINICAL HISTORY: unresponsive episode TECHNIQUE: 2D digital imaging was performed. COMPARISON: CR,XR XR CHEST 2V PA LATERAL from 02/15/2020 FINDINGS: MEDIASTINUM: Normal. HEART: Normal. PULMONARY VASCULATURE: Normal. LUNGS: Clear. PLEURAL SPACE: No pleural effusion or pneumothorax. BONE:Within normal limits for the patient's age. OTHER FINDINGS:Normal. IMPRESSION: No acute pulmonary findings. DATA REPOSITORY: RADIATION DOSE DELIVERED:
--- NOTE | 2021-02-22 13:15 | DI.CT_ITS ---
Exam(s) CT HEAD WO EXAM: CT HEAD WO CLINICAL HISTORY: unresponsive episode. TECHNIQUE: Imaging Protocol: Axial computed tomography images with coronal and sagittal reformatted images were created and reviewed COMPARISON: CT CT HEAD WO from 11/16/2020 FINDINGS: Ventricles and Extra axial spaces: Normal in size and morphology for the patient's age. Hemorrhage: None. Cerebral parenchyma: No acute territorial infarct. There are areas of decreased attenuation in the w akash matter most consistent with chronic microvascular ischemic disease. Midline shift: None. Brainstem/Cerebellum: Normal. Calvarium: Normal. Visualized Paranasal sinuses/Mastoids: Clear. Soft Tissues: Unremarkable. IMPRESSION: 1. No acute intracranial process. 2. Results of this exam have been verbally communicated with provider. RADIATION DOSE DELIVERED: 596.32mGy.cm Total DLP DATA REPOSITORY: All CT scans at this facility are submitted to the National Radiology Data Registry (NRDR) Dose Index Registry (DIR) with the [employer] ([employer]). RADIATION OPTIMIZATION: All CT scans at this facility use at least one of these dose optimization te chniques: automated exposure control; mA and/or kV adjustment per patient size (includes targeted exa ms where dose is matched to clinical indication); or iterative reconstruction.
--- NOTE | 2021-02-22 13:48 | ED.GENADUL_ITS ---
Discharge Plan Disposition Patient Disposition: HOME Condition: Stable Discharge Details Clinical Impression: Spells of decreased attentiveness, UTI (urinary tract infection) Primary Care Provider: Joanna Liz ED Provider: Loretta Pederson Home Meds and New Rx's Prescriptions: New cephalexin 500 mg capsule 500 mg PO Q12H 7 Days Qty: 14 RF: 0 Continued rivastigmine 4.6 mg/24 hour patch 24 hour 4.6 mg transdermal DAILY RF: 0 acetaminophen [Pain Relief (acetaminophen)] 650 mg tablet extended release 650 mg PO Q12H RF: 0 levetiracetam 500 mg tablet 500 mg PO BID Qty: 60 RF: 5 esomeprazole magnesium [Nexium 24HR] 20 mg capsule,delayed release(DR/EC) 20 mg PO DAILY Qty: 30 RF: 2 trazodone 50 mg tablet 50 mg PO QHS Qty: 60 RF: 3 paliperidone 1.5 mg tablet extended release 24hr 1.5 mg PO QAM Qty: 30 RF: 0 ondansetron HCl 4 mg tablet 4 mg PO Q6H PRNRF: 0 calcium carbonate [Calcium 600] 600 mg calcium (1,500 mg) tablet 600 mg PO BID RF: 0 melatonin 3 mg tablet 6 mg PO HS Qty: 60 RF: 3 cholecalciferol (vitamin D3) 25 mcg (1,000 unit) tablet 1,000 unit PO DAILY RF: 0 budesonide 3 mg capsule,delayed,extend.release 9 mg PO DAILY RF: 0 potassium chloride 20 mEq tablet,ER particles/crystals 20 meq PO DAILY RF: 0 magnesium gluconate 27 mg magnesium (500 mg) Tablet 27 mg PO DAILY RF: 0 Lactobacillus acidophilus Tablet 1 tab PO BID RF: 0 levothyroxine 50 mcg Tablet 50 mcg PO DAILY RF: 0 Ensure Liquid 1 ml PO BID RF: 0 Discharge Instructions Instructions: Urinary Tract Infection in Women (ED) Additional Instructions: Take antibiotics as prescribed Keep hydrated Yogurt daily while on antibiotic Please return should you develop new or worsening complaints including fever, chills, inability to tolerate antibiotics or recurrent episodes of unresponsiveness Discharge Data Discharge Date/Time-TO BE ENTERED AT DEPARTURE: 02/22/21 17:12 Medical Decision Making Patient is alert and at baseline per caregiver and Afebrile and nontoxic Magnesium of 1.7, will continue with supplement at home CT scan per radiology interpretation my review does not show acute abnormality, diagnostic labs better idea sharing EKG, please see my attendings documentation Troponin negative I reviewed patient's prior evaluation I did evaluate patient for similar episode in October I also discussed the case in detail with Vandana, patient guardian and she felt comfortable with patient being discharged home, she prefers the patient is not admitted to the hospital as this significantly impact patient quality of life Patient will be started on Keflex as she does appear to have a urinary tract infection, for culture will be obtained in the next several days Return precautions were discussed and caregiver expressed understanding Patient discharged home in stable vitals at her baseline mentation Medical Records Medical records reviewed: Yes I reviewed the patient's medical records. Lab Data Lab results reviewed: Yes I reviewed the patient's lab results. HPI General Mode of arrival: ambulatory . Date/Time Provider Initiated Documentation: 02/22/21 13:14 . Limitations to Documentation: no limitations . Information obtained by: patient . HPI Narrative: This 80 year old female presents with report of 5 min period of AMS. was reportedly unresponsive with similar episodes in the past. denies hx of extended period with episodes. Denies chest pain or shortness of breath. staff denies any seizure like activity. reportedly pt was slumped over her lunch and drooling for a few minutes and was at baseline immediately post event. denies recent change in meds, falls, or injuries. denies pain complaints. hx of dementia with baseline at this time. denies any additional complaints at this time. Related Data Home Medications Medication Instructions Recorded Confirmed Ensure 1 ml PO BID 02/15/20 02/22/21 levothyroxine 50 mcg PO DAILY 02/15/20 02/22/21 calcium carbonate 600 mg calcium 600 mg PO BID 08/17/20 02/22/21 (1,500 mg) tablet ondansetron HCl 4 mg tablet 4 mg PO Q6H PRN 08/17/20 02/22/21 esomeprazole magnesium 20 mg 20 mg PO DAILY #30 cap 09/08/20 02/22/21 capsule,delayed release acetaminophen 650 mg 650 mg PO Q12H 09/30/20 02/22/21 tablet,extended release levetiracetam 500 mg tablet 500 mg PO BID #60 tab 09/30/20 02/22/21 rivastigmine 4.6 mg/24 hour 4.6 mg TRANSDERMAL DAILY 09/30/20 02/22/21 transdermal patch Lactobacillus acidophilus 1 tab PO BID 11/16/20 02/22/21 budesonide 9 mg PO DAILY 11/16/20 02/22/21 cholecalciferol (vitamin D3) 1,000 unit PO DAILY 11/16/20 02/22/21 magnesium gluconate 27 mg PO DAILY 11/16/20 02/22/21 potassium chloride 20 meq PO DAILY 11/16/20 02/22/21 paliperidone 1.5 mg 1.5 mg PO QAM #30 tab 12/30/20 02/22/21 tablet,extended release 24 hr trazodone 50 mg tablet 50 mg PO QHS #60 tab 12/30/20 02/22/21 melatonin 3 mg tablet 6 mg PO HS #60 tab 01/04/21 02/22/21 cephalexin 500 mg PO Q12H 7 Days #14 cap 02/22/21 Previous Rx's Medication Instructions Recorded esomeprazole magnesium 20 mg 20 mg PO DAILY #30 cap 09/08/20 capsule,delayed release levetiracetam 500 mg tablet 500 mg PO BID #60 tab 09/30/20 paliperidone 1.5 mg 1.5 mg PO QAM #30 tab 12/30/20 tablet,extended release 24 hr trazodone 50 mg tablet 50 mg PO QHS #60 tab 12/30/20 melatonin 3 mg tablet 6 mg PO HS #60 tab 01/04/21 cephalexin 500 mg PO Q12H 7 Days #14 cap 02/22/21 Allergies Allergy/AdvReac Type Severity Reaction Status Date / Time No Known Allergies Allergy Unverified 02/22/21 13:21 General Stated Complaint: AMS/LOC TAD: 2 Review of Systems Unobtainable due to mental status [facility] Medical History Adverse drug effect suspected diarrhea from omeprazole Anemia Anxiety Cataracts, bilateral Cognitive developmental delay Diarrhea Diverticulosis of colon DNI (do not intubate) DNR (do not resuscitate) Does not walk GERD (gastroesophageal reflux disease) Hip fracture requiring operative repair November 2019 Hyperlipidemia Hypothyroidism Impulse control disorder Incontinence both urine and feces Left thigh pain Micturition syncope Mood disorder Nausea & vomiting Osteopenia Palliative care patient Patient has guardian Perseveration of speech POLST (Physician Orders for Life-Sustaining Treatment) Poor appetite always a picky eater, with minimal intake, per staff Sleep disturbance increased her melatonin to 6 mg advised to give trazodone 50 mg qhs, instead of 25 mg bid Unintentional weight loss Vascular dementia Vitamin D deficiency never goes outside suspect very low given her diet and lack of sunshine Surgical History History of left hip replacement Family History Sister GI cancer Brother GI cancer Mother No problems noted. Father No problems noted. Brother No problems noted. Social History Smoking/Tobacco Use Status: Never Smoking risk assessment performed?: Yes Alcohol Intake: never Drug use: Never Substance use type: does not use Caregiver/Support person: Yes Household members: caregiver Housing: other Details: [facility] with [facility] delay Number of Children: 0 Communication Needs: Corrective Lenses and Cannot Read Education Level: elementary school Do you need help understanding health information?: Always current occupation: life long disabled Current gender identity: female What is your relationship status?: never How often do you talk on the phone with friends or family?: never How often do you get together with friends or relatives?: never Panel score (0-1 are the most socially isolated patients): 0 What type of physical activity do you participate in: walking Duration: 15-30 minutes/day Frequency: daily Special shirley needs: No Seatbelt use: always Working smoke detector in home: Yes Fire extinguisher in home: Yes Do you feel safe at home: Yes Do you feel safe in your relationship?: Yes Additional Social history: Patient has life long cognitive delay and now with some mild dementia. She lives in an assisted living facility for people with cognitive delays in [place]. Moved there in December 2019. Spent first half of her life with her parents. Then moved in with a sibling until her brother . [facility]. [facility]. Guardian is Hafsa Pereyra. Anxiety increased since her overnight stay at the hospital. OCD-like behaviors; verbal perseveration constant. Exam Const General: cooperative and no acute distress HENMT Head: normal to inspection Face and sinus: No dry mucous membranes Other: , Uvula midline, maintaining secretions Eyes Pupils: PERRL EOM: EOM intact bilaterally Neck Other: No carotid bruit Chest Chest: normal inspection of the chest Resp Effort & Inspection: normal respiratory effort Auscultation: clear to auscultation bilaterally Cardio Rate: regular rate GI Other: No abdominal tenderness Skin General skin exam: no rashes or lesions noted Neuro General: patient alert and patient awake Cranial Nerves: CN's II-XI intact bilaterally Cognition: normal cognition Speech: speech normal Motor: strength 5/5 throughout and no pronator drift Sensory Exam: no sensory deficits noted Extrem Other: Distal pulses intact Course Vital Signs Vital signs: Vital Signs Temperature 36.8 C 02/22/21 13:09 Pulse 74 02/22/21 13:09 Respiratory Rate 17 02/22/21 13:09 Blood Pressure 122/90 02/22/21 13:09 Pulse Oximetry 97 02/22/21 13:09 Temperature 36.8 C 02/22/21 13:09 Temperature Source Skin 02/22/21 13:09 Pulse 74 02/22/21 13:09 Respiratory Rate 23 02/22/21 13:17 Respiratory Effort Non-Labored 02/22/21 13:17 Respiratory Depth Normal 02/22/21 13:17 Respiratory Pattern Normal 02/22/21 13:17 Blood Pressure 122/90 02/22/21 13:09 Blood Pressure Position Supine 02/22/21 13:09 Pulse Oximetry 97 02/22/21 13:09 Oxygen Delivery Method Room Air 02/22/21 13:09 Oxygen Flow Rate 0 02/22/21 13:09 Pain Level 0 02/22/21 13:09
[2021-02-22 13:49] LABS: Abs Immature Grans 0.03 10^3/uL (0.0-0.06); Absolute Basophil Count 0.04 10^3/uL (0.0-0.2); Absolute Lymphocyte Count 1.14 10^3/uL (1.2-3.4); Absolute Monocyte Count 0.44 10^3/uL (0.1-0.8); Absolute Neutrophil Count 4.08 10^3/uL (1.2-6.7); Basophils % 0.7; Eosinophils % 1.7; HCT 34.8 % (36.0-46.0); HGB 11.4 g/dL (11.2-15.7); Immature Grans % 0.5; Lymphocytes % 19.6; MCH 30.6 pg (27.0-33.0); MCHC 32.8 % (32.0-36.0); MCV 93.5 fL (80-95); MPV 8.8 fL (8.0-11.0); Monocytes % 7.5; Nucleated RBC 0 %; Platelet Count 350 10^3/uL (130-400); RBC 3.72 10^6/uL (3.93-5.22); RDW 13.6 % (11.7-14.6); RDW-SD 46.5 fL; WBC 5.83 10^3/uL (4.4-10.8)
[2021-02-22 13:58] LABS: Magnesium 1.7 mg/dL (1.8-2.4)
[2021-02-22 14:10] LABS: ALT 27 U/L (14-59); AST 24 U/L (15-37); Albumin 3.2 g/dL (3.4-5.0); Alkaline Phosphatase 69 U/L (46-116); BUN 21 mg/dL (7-18); Bilirubin, Total 0.3 mg/dL (0.2-1.0); Calcium 8.8 mg/dL (8.5-10.1); Chloride 97 mmol/L (98-107); Estimated GFR 53.62 (mL/min/1.73m2); Glucose 150 mg/dL (74-106); Potassium 4.9 mmol/L (3.5-5.1); Sodium 132 mmol/L (136-145); Total Protein 7.1 g/dL (6.4-8.2); Troponin I < 0.05 ng/mL (<0.06)
[2021-02-22 16:12] LABS: Bilirubin Negative (Negative); Blood Small (Negative); Clarity Cloudy (Clear); Glucose Negative (Negative); Ketones Negative (Negative); Leukocyte Esterase Large (Negative); Nitrite Positive (Negative); Specific Gravity 1.015 (1.005-1.025); Urobilinogen 0.2 EU/dL (Up TO 0.2); pH 6.5 (5-8)
[2021-02-22 16:29] LABS: Bacteria Many HPF (Negative); C & S Indicated? Yes; Casts Negative LPF (Negative); Crystals Negative HPF (Negative); Epithelial Cells Few HPF (Negative); Mucus Negative (Negative); WBC >50 HPF (0-5)
[2021-02-22] MEDS: Cephalexin 500 MG CAP PO (17:00)
[2021-02-22] MEDS: Cephalexin 500 MG CAP, 4 CAPS/BTL PO (17:04)
--- NOTE | 2021-02-23 08:26 | NUR.NOTE ---
Nursing Note: At the request of Aleta Martinez [facility] the provider note was faxed to her. Vandana Parker [phone]
== END 2021-02-22 17:12 | disposition home or self-care (01) ==
PROVIDERS: Emergency Provider Physician Assistant; PCP Family Medicine
DX: R41.840 Attention and concentration deficit (principal); N39.0 Urinary tract infection, site not specified; B96.20 Unspecified Escherichia coli [E. coli] as the cause of diseases classified elsewhere
CPT/HCPCS: 36415; 36416; 80053; 82962; 87077; 93005; 99285; 70450; 71046; 81003; 81015; 83735; 84484; 85025; 87086; 87186; 93010; 99284

== ENCOUNTER → 2021-03-10 07:32 | Outpatient (BNVA) | payer MEDICARE, MEDICAID, SELFPAY | PROVIDERS: PCP Family Medicine; Visit Provider Psychiatry & Neurology Neurology | DX: R68.89 Other general symptoms and signs (principal) | CPT/HCPCS: 99214 ==

== ENCOUNTER → 2021-06-09 07:17 | Outpatient (BNVA) | payer MEDICARE, MEDICAID, SELFPAY | PROVIDERS: PCP Family Medicine; Referring Provider Family Medicine; Visit Provider Psychiatry & Neurology Neurology | DX: R68.89 Other general symptoms and signs (principal) | CPT/HCPCS: 99213 ==